=== PATIENT | female | born 1970 | race Caucasian/White ===

== ENCOUNTER → 2021-11-01 10:39 | Outpatient (POV) | payer OTHER, SELFPAY ==
[2021-11-01 11:36] VITALS: BP 114/95; PULSE 80; RESP 20; TEMP 36.7; O2SAT 97; BMI 33.2
--- NOTE | 2021-11-01 13:20 | HMH.PMCON ---
Assessment and Plan (1) Degenerative disc disease, lumbar Status: Acute Category: Medical Code(s): M51.36 - Other intervertebral disc degeneration, lumbar region (2) Lumbar radiculopathy Status: Acute Category: Medical Code(s): M54.16 - Radiculopathy, lumbar region (3) Facet arthropathy, lumbar Status: Acute Category: Medical Code(s): M47.816 - Spondylosis without myelopathy or radiculopathy, lumbar region - Assessment and plan all Dx Assessment and Plan for all problems:: Patient presents today with worsening LBP that radiates to BLE, L > R. Patient had a transforaminal MANE that significantly helped in the past. We will schedule the patient for a repeat left sided transforaminal MANE at L5-S1. Risks and benefits of the procedure have been explained to the patient. Patient would like to proceed with the procedure. Patient is not on any blood thinners. Patient is not needing any refills on her medications. If the patient does not get any relief from this injection, we will consider getting an updated lumbar MRI to further evaluate pathology. Patient has been instructed to contact the clinic with any concerns before the next appointment. Dr. Bernabe has reviewed this note and agrees with this plan of care. This note was dictated using voice recognition software and make contain errors or omissions. HPI - Data of Consult Patient: new to practice Consult date: 11/01/21 Requesting Physician: ZACHARY Saeed - Consult Narrative Reason for consult: LBP History of present illness: Ms. Fajardo is a 50 year old female who presents today as a new patient. Patient is referred by Dr. No. Thank you for the referral. Patient presents today with worsening LBP that radiates to BLE, L > R. She fractured her back in multiple places when she was 17. She had to wear a TLSO brace for several months. Pain is worse with lumbar flexion, extension, and rotation. She had LESI in the past that provided minimal relief. Then, she saw Dr. Mcbride who did a transforaminal epidural steroid injection on L5-S1 that provided months of significant relief. For pain, she has been taking diclofenac and flexeril which are providing some relief. She has done PT and chiropractic adjustment in the past that also provided minimal relief. She has not seen neurosurgery. Lumbar MRI from 2018 shows left posterolateral disc protrusion at L5-S1 with a high-grade left neural foraminal narrowing. CC: ZACHARY Saeed [facility] History I have reviewed the patient's past medical history: Yes Medical History: Reports:: Hypertension Denies:: Diabetes Mellitus Type 2 *Have you ever received a pneumonia vaccine?: No *Have you received a flu vaccine this season?: Yes Fractures: Yes - *Social History Smoking Status: Current every day smoker Alcohol Intake: never *Occupational Status:: employed *Travel in the last 8 weeks: None Family Hx:: No significant family history Review of Systems - Review of Systems Review of Systems: General: No recent weight changes, no fever, no sleep disturbances Respiratory: No cough, no shortness of air, no recurring pulmonary infections Cardiovascular/peripheral vascular: No chest pain, no palpitations, no edema, no shortness of breath Gastrointestinal: No new onset incontinence, normal bowel movements reported Genitourinary: No new onset incontinence Musculoskeletal: Low back pain Psychiatric: [Normal mood/affect] Neurological: [Denies weakness in extremities], [denies balance issues] Meds Home Medications Medication Instructions Recorded Confirmed Type Cyclobenzaprine HCl 5 - 10 mg PO TID PRN 11/01/21 11/01/21 History [Cyclobenzaprine 10mg Tab*] Diclofenac Potassium [Diclofenac 50 mg PO DAILY 11/01/21 11/01/21 History 50mg Tab] Doxycycline Hyclate [Doxycycline 50 mg PO Q12H PRN 11/01/21 11/01/21 History 50mg Capsule] Fluoxetine HCl [Prozac 20mg 20 mg PO DAILY 11/01/21 11/01/21 History Capsule]
== END ==
PROVIDERS: Visit Provider Student in an Organized Health Care Education/Training Program
DX: M51.16 Intervertebral disc disorders with radiculopathy, lumbar region (principal); M47.26 Other spondylosis with radiculopathy, lumbar region
CPT/HCPCS: 99202; G0463

== ENCOUNTER 2021-11-02 07:37 | Day surgery (SDC) | payer OTHER, SELFPAY ==
[2021-11-02 07:46] VITALS: BP 132/78; PULSE 89; RESP 18; TEMP 36.5; O2SAT 96; BMI 33.2
[2021-11-02 08:04] VITALS: BP 146/77; PULSE 81; RESP 20
--- NOTE | 2021-11-02 08:12 | P.PCN_ITS ---
- Procedure Date: 11/02/21 Time: 08:12 Anesthesiologist:: Matthew Robert CRNA Complications:: None Pre-procedure Diagnosis:: Degenerative disc disease lumbar spine. Lumbar spondylosis. Lumbar radiculopathy. Post-procedure Diagnosis:: Same Indications for Procedure:: This patient is a very pleasant 50-year-old female that reports to our injection clinic today for transforaminal epidural steroid injection at the L5-S1 level on the left. Patient is had this pain in the past. She has had this injection in the past. With significant improvement. She rates her pain 7/10. She descr ibes the pain as constant, dull, aching in the low back left side greater than right including the left leg to the foot. Procedure Details:: Details of the procedure were explained to the patient. The patient taken the procedure room placed in the prone position on the fluoroscopy table. The area over the left lower lumbar spine was cleaned using chlorhexidine as a cleansing solution. Using fluoroscopy guidance a marker was placed just lateral to the L5 vertebral body. The skin and subcutaneous tissue was anesthetized using 1% lidocaine and a 25-gauge needle. At this time a 3 inch 22-gauge needle was used to access the left L5-S1 upper one third foramen. This was done with fluoroscopy guidance. Confirming needle placement using lateral view fluoroscopy the needle was confirmed in the upper one third of the L5-S1 foramen. After negative aspiration. At this time 0.5 cc of 1% lidocaine +40 mg of Depo-Medrol was injected. Patient tolerated the procedure without difficulty. There are no complications. Plan and Disposition:: Patient was discharged without incident.
[2021-11-02 08:13] VITALS: BP 124/83; PULSE 81; RESP 18; O2SAT 100
== END 2021-11-02 08:14 | disposition home or self-care (01) ==
LOC: SC.PAINP 07:40
PROVIDERS: PCP Internal Medicine; Visit Provider Nurse Anesthetist, Certified Registered
DX: M51.16 Intervertebral disc disorders with radiculopathy, lumbar region (principal); M47.26 Other spondylosis with radiculopathy, lumbar region
CPT/HCPCS: 64483; J1040

== ENCOUNTER → 2021-11-29 08:20 | Outpatient (POV) | payer OTHER, SELFPAY ==
[2021-11-29 08:51] VITALS: BP 149/98; PULSE 94; RESP 18; TEMP 36.6; O2SAT 99; BMI 32.3
--- NOTE | 2021-11-29 10:46 | HMH.PAINSOAP ---
[facility] Pain Management SOAP Note Subjective:: Patient is a very pleasant 50-year-old female that ports to clinic today for follow-up. We are currently treating the patient for degenerative disc disease of lumbar spine with lumbar radiculopathy symptoms, lumbar spondylosis. She had a transforaminal epidural steroid injection at L5-S1 on her left side on November 02, 2021. She states this injection has worked well for her. She states that the shot continues to be helping she has been able to increase her activity. Today she rates her pain a 3 out of 10. She states her pain is in her low back and her hips, describing it as a dull ache. She also states that she has calf pain that is worse when she lays down. She states that she had older lumbar MRI imaging and would like updated imaging ordered today. Patient takes caxi-rll-[id number] Tylenol and ibuprofen as needed for pain. Her Johny is [id number] with a morphine equivalent of 0. It has been reviewed and is appropriate. Review of Systems: General: No recent weight changes, no fever, no sleep disturbances Respiratory: No cough, no shortness of air, no recurring pulmonary infections Cardiovascular/peripheral vascular: No chest pain, no palpitations, no edema, no shortness of breath Gastrointestinal: No new onset incontinence, normal bowel movements reported Genitourinary: No new onset incontinence Musculoskeletal: Low back pain, bilateral hip pain, bilateral calf pain Psychiatric: [Normal mood/affect] Neurological: [Denies weakness in extremities], [denies balance issues] Objective:: Physical Exam: General: Alert and oriented x3, no acute distress, pleasant and cooperative Lungs: Respirations even and unlabored, symmetrical chest expansion Eyes: PERRL Musculoskeletal: Flexion and extension of bilateral hip, calf and lumbar [spine] somewhat guarded secondary to pain, [antalgic gait noted] Neurological: Speech clear, no gross sensory deficit Assessment:: Degenerative disc disease of lumbar spine with lumbar radiculopathy symptoms, lumbar spondylosis Plan:: Patient states she has had 70% relief in her back since her injection. At time of exam she did have point tenderness on bilateral hips. I have discussed with the patient about possibly having bilateral hip bursa injections. At this time patient is going to wait on those injections. For her calf pain we have decided to start her on restless leg medication, Requip. We will follow-up with her in 2 weeks on this new medication. At today's visit we will also order new lumbar MRI imaging. Patient will return to clinic in 2 weeks for follow-up. Patient has been instructed to contact the clinic with any concerns before the next appointment. Dr. Bernabe has reviewed this note and agrees with this plan of care. This note was dictated using voice recognition software and make contain errors or omissions. [facility] History I have reviewed the patient's past medical history: Yes Medical History: Reports:: Hypertension Denies:: Diabetes Mellitus Type 1, Diabetes Mellitus Type 2, MRSA *Have you ever received a pneumonia vaccine?: No *Have you received a flu vaccine this season?: Yes Other Surgeries: Yes: , Hysterectomy-Total, Thyroidectomy Fractures: Yes - *Social History Smoking Status: Never smoker Alcohol Intake: never *Occupational Status:: other *Travel in the last 8 weeks: Inside the [facility] Family Hx:: No significant family history
== END ==
PROVIDERS: Visit Provider Student in an Organized Health Care Education/Training Program
DX: M51.16 Intervertebral disc disorders with radiculopathy, lumbar region (principal); M47.26 Other spondylosis with radiculopathy, lumbar region
CPT/HCPCS: 99212; G0463

== ENCOUNTER → 2021-12-03 08:11 | Outpatient (CLI) | payer OTHER, SELFPAY ==
--- NOTE | 2021-12-03 08:14 | MR_ITS ---
FINAL REPORT CLINICAL HISTORY: BACK PAIN. RIGHT AND LEFT LEG PAIN, NUMBNESS, AND TINGLING BUT LEFT LEG IS WORSE. BILATERAL HIP PAIN. SYMPTOMS FOR YEARS. HISTORY LUMBAR FRACTURE YEARS AGO. FINDINGS: Multiplanar MR imaging of the lumbar spine was performed without contrast. On the sagittal T2-weighted images, disc degeneration is seen at multiple levels. There are several Schmorl's nodes. The vertebral alignment is normal. There is no evidence of fracture. No bony mass is identified. The conus has an unremarkable appearance. No significant canal stenosis is identified. T11-T12: A left paracentral disc protrusion indents the thecal sac. T12-L1: There is no significant canal stenosis or neural foraminal narrowing. L1-2: There is an annular bulge, facet arthropathy and vertebral osteophytes. There is mild right neural foraminal narrowing. L2-3: There is an annular bulge and facet arthropathy. There is a small left foraminal disc protrusion. There is mild left neural foraminal narrowing. L3-4: There is an annular bulge and facet arthropathy. There is mild bilateral neural foraminal narrowing. L4-5: There is an annular bulge and facet arthropathy. There is moderate bilateral neural foraminal narrowing. L5-S1: There is an annular bulge, facet arthropathy and vertebral osteophytes. There is a small central disc protrusion. There is moderate right and severe left neural foraminal narrowing. IMPRESSION: Disc protrusions at T11-T12, L2-L3, and L5-S1 without significant central canal stenosis. Multilevel degenerative disc disease with areas of neural foraminal narrowing. Reviewed, Interpreted and Dictated by Justin Singer III, MD Transcribed by Hesham Hawkins Authenticated and [facility]
== END ==
PROVIDERS: PCP Internal Medicine; Visit Provider Student in an Organized Health Care Education/Training Program
DX: M54.50 Low back pain, unspecified (principal)
CPT/HCPCS: 72148; 76376

== ENCOUNTER → 2021-12-20 08:29 | Outpatient (POV) | payer OTHER, SELFPAY ==
[2021-12-20 08:43] VITALS: BP 150/94; PULSE 79; RESP 20; O2SAT 99; BMI 33.2
--- NOTE | 2021-12-20 08:57 | HMH.PAINSOAP ---
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 We are currently treating the patient for degenerative disc disease of lumbar spine with lumbar radiculopathy symptoms, lumbar spondylosis. Today she rates her pain a 0 out of 10. We have done injective therapy in the past for her, her last injection was a transforaminal epidural steroid injection at L5-S1 on her left side on November 02, 2021. We also started prescribing her restless leg medication, ropinirole 0.25 mg daily. She states this medication has significantly improved her cramping in her legs/calves. She denies any side effects from this medication. She denies any change to the type or location of pain she experiences. She would like to review her MRI findings at today's visit. Her Johny is [id number] it has been reviewed and appropriate. Review of Systems: General: No recent weight changes, no fever, no sleep disturbances Respiratory: No cough, no shortness of air, no recurring pulmonary infections Cardiovascular/peripheral vascular: No chest pain, no palpitations, no edema, no shortness of breath Gastrointestinal: No new onset incontinence, normal bowel movements reported Genitourinary: No new onset incontinence Musculoskeletal: [Low back pain, bilateral leg/calf pain] Psychiatric: [Normal mood/affect] Neurological: [Denies weakness in extremities], [denies balance issues] Objective:: Physical Exam: General: Alert and oriented x3, no acute distress, pleasant and cooperative Lungs: Respirations even and unlabored, symmetrical chest expansion Eyes: PERRL Musculoskeletal: Flexion and extension of lumbar [spine] somewhat guarded secondary to pain, [antalgic gait noted] Neurological: Speech clear, no gross sensory deficit FINAL REPORT CLINICAL HISTORY: BACK PAIN. RIGHT AND LEFT LEG PAIN, NUMBNESS, AND TINGLING BUT LEFT LEG IS WORSE. BILATERAL HIP PAIN. SYMPTOMS FOR YEARS. HISTORY LUMBAR FRACTURE YEARS AGO. FINDINGS: Multiplanar MR imaging of the lumbar spine was performed without contrast. On the sagittal T2-weighted images, disc degeneration is seen at multiple levels. There are several Schmorl's nodes. The vertebral alignment is normal. There is no evidence of fracture. No bony mass is identified. The conus has an unremarkable appearance. No significant canal stenosis is identified. T11-T12: A left paracentral disc protrusion indents the thecal sac. T12-L1: There is no significant canal stenosis or neural foraminal narrowing. L1-2: There is an annular bulge, facet arthropathy and vertebral osteophytes. There is mild right neural foraminal narrowing. L2-3: There is an annular bulge and facet arthropathy. There is a small left foraminal disc protrusion. There is mild left neural foraminal narrowing. L3-4: There is an annular bulge and facet arthropathy. There is mild bilateral neural foraminal narrowing. L4-5: There is an annular bulge and facet arthropathy. There is moderate bilateral neural foraminal narrowing. L5-S1: There is an annular bulge, facet arthropathy and vertebral osteophytes. There is a small central disc protrusion. There is moderate right and severe left neural foraminal narrowing. IMPRESSION: Disc protrusions at T11-T12, L2-L3, and L5-S1 without significant central canal stenosis. Multilevel degenerative disc disease with areas of neural foraminal narrowing. Reviewed, Interpreted and Dictated by Justin Singer III, MD Transcribed by Hesham Hawkins Authenticated and [facility] Assessment:: Degenerative disc disease of lumbar spine with lumbar radiculopathy symptoms, lumbar spondylosis Plan:: She has had significant improvement since starting her ropinirole 0.25 mg daily for restless leg syndrome. Patient still currently has a prescription of this medication to ed
== END ==
PROVIDERS: PCP Internal Medicine; Visit Provider Nurse Practitioner Family
DX: M51.16 Intervertebral disc disorders with radiculopathy, lumbar region (principal); M47.26 Other spondylosis with radiculopathy, lumbar region
CPT/HCPCS: 99212; G0463

== ENCOUNTER → 2022-01-17 08:29 | Outpatient (POV) | payer OTHER, SELFPAY ==
[2022-01-17 08:36] VITALS: BP 137/95; PULSE 82; RESP 18; O2SAT 98; BMI 33.0
--- NOTE | 2022-01-17 08:56 | EXP.PAIN.SOA ---
[facility] Pain Management SOAP Note Subjective:: Patient is a pleasant 51-year-old female who presents today for follow-up and medication refill. We are currently treating the patient for degenerative disc disease of lumbar spine with lumbar radiculopathy symptoms, lumbar spondylosis, restless leg syndrome. Today she rates her pain a 8 out of 10 and states her pain is primarily on her low back on the left side that radiates into her left hip and groin. She states it occasionally does go down to her knee. She states this is a throbbing, achy sensation that is worse with increased activity. Raising her leg to put her shoes on is painful. Patient denies any new trauma or injury to the site. We have done injective therapy in the past that provided significant improvement of her symptoms. She is currently on ropinirole 0.25 mg daily for her restless leg syndrome. Patient states this medication has significantly improved her cramping in her legs and calves. She is requesting a refill at today's visit. She denies any side effects from this medication. Her Johny is [id number]. It has been reviewed and appropriate. Review of Systems: General: No recent weight changes, no fever, no sleep disturbances Respiratory: No cough, no shortness of air, no recurring pulmonary infections Cardiovascular/peripheral vascular: No chest pain, no palpitations, no edema, no shortness of breath Gastrointestinal: No new onset incontinence, normal bowel movements reported Genitourinary: No new onset incontinence Musculoskeletal: Low back pain, left hip pain, left groin pain Psychiatric: [Normal mood/affect] Neurological: [Denies weakness in extremities], [denies balance issues] Objective:: Physical Exam: General: Alert and oriented x3, no acute distress, pleasant and cooperative Lungs: Respirations even and unlabored, symmetrical chest expansion Eyes: PERRL Musculoskeletal: Flexion and extension of lumbar [spine] somewhat guarded secondary to pain, [antalgic gait noted] Neurological: Speech clear, no gross sensory deficit Assessment:: Degenerative disc disease of lumbar spine with lumbar radiculopathy symptoms, lumbar spondylosis, restless leg syndrome, left-sided sacroiliitis Plan:: Patient is having significant pain along her left low back that radiates into her left hip and groin with occasional pain into her thigh. Patient had extreme point tenderness at her left SI and a positive left Maicol's, Kaylie's, Gaenslen's, compression and distraction test during today's exam. I have discussed with the patient regarding a left SI injection. Risk and benefits were discussed with the patient. She would like to proceed forward with this injection. I will also refill the patient's ropinirole 0.25 mg daily and provide a 3 month supply. Patient will be scheduled for a left SI injection at today's visit. Patient has been instructed to contact the clinic with any concerns before the next appointment. Dr. Bernabe has reviewed this note and agrees with this plan of care. This note was dictated using voice recognition software and make contain errors or omissions. PFSH PFSH Social History Smoking Status: Never smoker alcohol intake: never current occupational status: employed caffeine: Yes
== END | disposition home or self-care (01) ==
PROVIDERS: PCP Internal Medicine; Visit Provider Nurse Practitioner Family
DX: M51.16 Intervertebral disc disorders with radiculopathy, lumbar region (principal); M47.26 Other spondylosis with radiculopathy, lumbar region; M46.1 Sacroiliitis, not elsewhere classified; G25.81 Restless legs syndrome
CPT/HCPCS: 99212; G0463

== ENCOUNTER 2022-02-05 08:00 | Day surgery (SDC) | payer OTHER, SELFPAY ==
[2022-02-05 08:17] VITALS: BP 149/90; PULSE 95; RESP 18; TEMP 36.7; O2SAT 95; BMI 33.2
[2022-02-05 09:05] VITALS: BP 144/96; PULSE 84; RESP 18; O2SAT 100
[2022-02-05 09:06] VITALS: BP 144/96; PULSE 83; RESP 18; O2SAT 100
[2022-02-05 09:10] VITALS: BP 139/90; PULSE 76; RESP 18; O2SAT 100
--- NOTE | 2022-02-05 09:16 | EXP.PAIN.PRO ---
Procedure Date: 02/05/22 Time: 09:05 Anesthesiologist:: Matthew Robert CRNA Complications:: None Pre-procedure Diagnosis:: Degenerative disc disease of lumbar spine with lumbar radiculopathy symptoms, lumbar spondylosis, restless leg syndrome, sacroiliitis Post-procedure Diagnosis:: Same Indications for Procedure:: Patient is a pleasant 51-year-old female who presents today for left SI injection. We are currently treating the patient for degenerative disc disease of lumbar spine with lumbar radiculopathy symptoms, lumbar spondylosis, restless leg syndrome, sacroiliitis. Today the patient states she is still having issues on her left side low back that radiates into her left extremity. She describes this as a throbbing, achy sensation that is worse with increased activity. Procedure Details:: Informed consent was obtained and the risk and benefits of the procedure were explained to the patient. The patient was taken to the procedure room where noninvasive monitors were placed including a noninvasive blood pressure cuff and pulse oximeter. The patient was placed on prone on the procedure table. The lower back/buttocks was cleansed using chlorhexidine as a cleansing solution. The C arm fluoroscopy was used to view the left SI joint. The skin and subcutaneous tissue were accessed using a 22-gauge needle under fluoroscopic guidance into the inferior aspect of the left SI joint approximately 5 mL of bupivacaine 0.25% and Depo-Medrol 40 mg were incrementally injected into the left SI joint. Patient tolerated the procedure well with no complications. Plan and Disposition:: Patient was observed in the pain clinic for period of time and then discharged home neurologically intact. Patient has been instructed to contact the clinic with any concerns before the next appointment. Dr. Bernabe is reviewed this note and agrees with this plan of care. This note was dictated using voice recognition software and may contain errors or omissions.
== END 2022-02-05 09:10 | disposition home or self-care (01) ==
PROVIDERS: PCP Internal Medicine; Visit Provider Nurse Anesthetist, Certified Registered
DX: M51.16 Intervertebral disc disorders with radiculopathy, lumbar region (principal); M47.26 Other spondylosis with radiculopathy, lumbar region; M46.1 Sacroiliitis, not elsewhere classified; G25.81 Restless legs syndrome
CPT/HCPCS: 27096; G0260; J1040

== ENCOUNTER → 2022-03-19 09:38 | Outpatient (POV) | payer OTHER, SELFPAY | PROVIDERS: Visit Provider Dermatology | DX: Z00.00 Encounter for general adult medical examination without abnormal findings (principal) ==

== ENCOUNTER → 2022-03-28 08:28 | Outpatient (CLI) | payer OTHER, SELFPAY ==
--- NOTE | 2022-03-28 08:37 | XR_ITS ---
FINAL REPORT CLINICAL HISTORY: BILAT HIP PAIN FINDINGS: 2 views of the left hip and an AP pelvis were obtained. There is no acute fracture or dislocation. The joint spaces are intact. There are no soft tissue abnormalities. IMPRESSION: No acute process. Reviewed, Interpreted and Dictated by Mahamed Warren MD Transcribed by Hesham Hawkins Authenticated and [facility]
--- NOTE | 2022-03-28 08:38 | XR_ITS ---
FINAL REPORT CLINICAL HISTORY: BILAT HIP PAIN FINDINGS: 2 views of the right hip were obtained. There is no acute fracture or dislocation. The joint spaces are intact. There are no soft tissue abnormalities. IMPRESSION: No acute process. Reviewed, Interpreted and Dictated by Mahamed Warren MD Transcribed by Hesham Hawkins Authenticated and [facility]
== END ==
PROVIDERS: PCP Nurse Practitioner Family; Visit Provider Nurse Practitioner Family
DX: M25.552 Pain in left hip (principal); M25.551 Pain in right hip
CPT/HCPCS: 73502

== ENCOUNTER 2024-10-04 10:46 | Outpatient (POV) | payer BC, SELFPAY ==
--- NOTE | 2024-10-04 11:04 | A.OFFVIS_ITS ---
[facility] Disclaimer: The information contained in this section may have been updated after the patient was seen, as this information can be updated by other users. Medical History (Updated 02/05/22 @ 08:23 by Elodia Clancy RN) No significant past medical history Surgical History (Updated 02/05/22 @ 08:24 by Elodia Clancy RN) History of hysterectomy Hx of breast reduction, elective History of thyroidectomy History of Family History (Updated 02/05/22 @ 08:23 by Elodia Clancy RN) Other No significant family history Social History Smoking Status: Never smoker alcohol intake: never current occupational status: employed Travel in the last 8 weeks?: Inside the [place] caffeine: Yes Have you lived/traveled outside US in past 30 days?: No Contact w/someone who lives/traveled outside US past 30 days?: No Exposure to someone with infectious disease in past 14 days?: No Do you have a fever (greater than 100.4 F or 38 C)?: No Have you tested positive for COVID-19?: No Exposed to someone with COVID-19 in past 14 days?: No Do you have a sore throat?: No Do you have a cough?: No Do you have any weakness?: No Do you have any diarrhea?: No Are you experiencing any unusual bleeding?: No Do you have any muscle aches/pain?: No Do you have any abdominal pain?: No Are you experiencing loss of taste or smell?: No PM Subjective & Objective Subjective Subjective:: Patient is a pleasant 53-year-old female who presents today for worsening low back pain. Today she rates her pain a 8 out of 10. Patient states that she has still been having chronic back pain that we saw her previously in 2021 for. Patient states that it is just gotten more and more unmanageable and the pain is fairly constant. She describes her low back pain as an aching, throbbing sensation with numbness and tingling that does radiate down the entire left extremity to her foot as well as the right leg but stops around her hip. Patient does state from our last visit she did see a provider in [place] and that they did do an epidural last year that did help however has officially worn off. Patient is interested in anything we may be able to provide as she is having severe pain that is interfering with her ability perform activities of daily living such as cooking and cleaning. Patient was previously taking diclofenac 50 mg however did not really feel like this was working as well and is discontinued this. Patient does state that she was tried on gabapentin how ever it caused significant brain fog and she discontinued it. Her Johny has been reviewed and is appropriate. Review of Systems: General: No recent weight changes, no fever, no sleep disturbances Respiratory: No cough, no shortness of air, no recurring pulmonary infections Cardiovascular/peripheral vascular: No chest pain, no palpitations, no edema, no shortness of breath Gastrointestinal: No new onset incontinence, normal bowel movements reported Genitourinary: No new onset incontinence Musculoskeletal: Low back pain, bilateral leg pain Psychiatric: [Normal mood/affect] Neurological: [Denies weakness in extremities], [denies balance issues] Pain at rest (0-10 scale): 8 Objective Objective:: Physical Exam: General: Alert and oriented x3, no acute distress, pleasant and cooperative Lungs: Respirations even and unlabored, symmetrical chest expansion Eyes: PERRL Musculoskeletal: Flexion and extension of lumbar [spine] somewhat guarded secondary to pain, [antalgic gait noted] positive leg raise Neurological: Speech clear, no gross sensory deficit FINDINGS: Multiplanar MR imaging of the lumbar spine was performed without contrast. On the sagittal T2-weighted images, disc degeneration is seen at multiple levels. There are several Schmorl's nodes. The vertebral alignment is normal. There is no evidence of fracture. No bony mass is identified. The conus has an unremarkable appearance. No significant canal stenosis is identified. T11-T12: A left paracentral disc protrusion indents the thecal sac. T12-L1: There is no significant canal stenosis or neural foraminal narrowing. L1-2: There is an annular bulge, facet arthropathy and vertebral osteophytes. There is mild right neural foraminal narrowing. L2-3: There is an annular bulge and facet arthropathy. There is a small left foraminal disc protrusion. There is mild left neural foraminal narrowing. L3-4: There is an annular bulge and facet arthropathy. There is mild bilateral neural foraminal narrowing. L4-5: There is an annular bulge and facet arthropathy. There is moderate bilateral neural foraminal narrowing. L5-S1: There is an annular bulge, facet arthropathy and vertebral osteophytes. There is a small central disc protrusion. There is moderate right and severe left neural foraminal narrowing. IMPRESSION: Disc protrusions at T11-T12, L2-L3, and L5-S1 without significant central canal stenosis. Multilevel degenerative disc disease with areas of neural foraminal narrowing. Reviewed, Interpreted and Dictated by Justin Singer III, MD Transcribed by Hesham Hawkins Authenticated and [facility] Has patient had previous pain injection?: No Conservative treatment options previously tried: NSAIDS Length of treatment: Longer than 12 weeks and Home exercise plan Length of treatment: Longer than 12 weeks Meds Home Medications and Allergies Home Medications ?Medication ?Instructions ?Recorded ?Confirmed ?Type cyclobenzaprine 10 mg tablet 5 - 10 mg PO TID PRN PAIN 11/01/21 02/05/22 History diclofenac potassium 50 mg tablet 50 mg PO DAILY . 11/01/21 02/05/22 History doxycycline hyclate 50 mg capsule 50 mg PO Q12H PRN ACNE 11/01/21 02/05/22 History fluoxetine 20 mg capsule 20 mg PO DAILY Depression 11/01/21 02/05/22 History hydrochlorothiazide 12.5 mg capsule 25 mg PO DAILY HTN 11/01/21 02/05/22 History levocetirizine 5 mg tablet 5 mg PO DAILY Allergy symptoms 11/01/21 02/05/22 History linaclotide 145 mcg capsule 145 mcg PO DAILY PRN Constipation 11/01/21 02/05/22 History pantoprazole 40 mg tablet,delayed 40 mg PO DAILY GERD 11/01/21 02/05/22 History release trazodone 50 mg tablet 100 mg PO DAILY SLEEP 11/01/21 02/05/22 History ubrogepant 100 mg tablet 100 mg PO DAILY MIGRAINE 11/01/21 02/05/22 History ropinirole 0.25 mg tablet 0.25 mg PO HS #30 tabs 06/09/23 Rx ropinirole 0.25 mg tablet See Rx Instructions .Route 01/26/24 Rx .COMPLEX #90 tabs New Prescriptions to Start Prescriptions: Assessment and Plan *Assessment and plan (1) Lumbar radiculopathy: Status: Acute Category: Medical Code(s): M54.16 - Radiculopathy, lumbar region (2) Degenerative disc disease, lumbar: Status: Acute Category: Medical Code(s): M51.369 - Other intervertebral disc degeneration, lumbar region without mention of lumbar back pain or lower extremity pain Plan Patient is experiencing worsening pain in her low back with numbness and tingling into her lower extremities. Patient did have limited range of motion of her lumbar spine with a positive leg raise. I did discuss with patient that I do believe they would benefit from a lumbar epidural steroid injection. Patient does describe the pain radiating down the left leg on the lateral upper thigh that does go to the front of her lower calf that is appropriate for the L4-L5 dermatome. Risk and benefits were discussed with patient and the patient would like to proceed forward with this plan of care. Patient is not on any blood thinner. Patient has tried and failed conservative therapy including oral medications, heat and ice, topicals, previous physical therapy and continued at home stretching exercise for longer than 12 weeks that was physician guided. Patient has not had any lumbar epidurals from our office to compare to. Patient is very limited on her work schedule and is only off on however we do not have her provider that can do the injection here at this location. We will send her to our [facility] location for Dr. Bernabe to do the epidural. Saima nealdawson will also be sent in prescription refills on diclofenac but increase to 75 mg twice a day. She was counseled to discontinue all other NSAIDs while taking this medication and take it with food to minimize GI upset. I will also send in a 2-week dose of methocarbamol 500 mg 3 times daily as needed and increase the concentration on her compounded cream. Patient will return to our office after her epidural injection there in [place]. Patient did have significant findings even in 2021 with her last imaging report we had. We did discuss the possibility of ordering updated imaging however the patient does state that she already knows she has significant findings with stenosis and feels like this is still progression of the same pain she had previously. We will schedule the patient for an LESI L4-L5 under fluoroscopy. Patient has been instructed to contact the clinic with any concerns before the next appointment. Dr. Bernabe has reviewed this note and agrees with this plan of care. This note was dictated using voice recognition software and make contain errors or omissions. All injections are used with Lidocaine, Bupivacaine and Depo Medrol. Occasionally urine drug screen is needed to verify patient's compliance with our office pain contract. This is ordered based off specific treatments related to chronic pain with the potential to abuse certain medications.
[2024-10-04 11:50] VITALS: BP 149/96; PULSE 103; RESP 18; O2SAT 94; BMI 36.3
== END 2024-10-04 23:59 | disposition home or self-care (01) ==
PROVIDERS: PCP Nurse Practitioner Family; Visit Provider Nurse Practitioner Family
DX: M51.16 Intervertebral disc disorders with radiculopathy, lumbar region (principal); Z73.89 Other problems related to life management difficulty
CPT/HCPCS: 99212; G0463

== ENCOUNTER 2024-12-09 15:23 | Outpatient (POV) | payer BC, SELFPAY ==
--- OUTSIDE RECORDS SUMMARY | 2024-12-09 15:27 | XMS_ITS | Continuity of Care Document ---
Author Organization [place] [facility] New Address [address] [place] [address] Assessment Encounter Date Assessment Date Assessment LastModified by Organization Details LastModified Time 10/28/2024 10/28/2024 This patient had lumbar epidural steroid injection under fluoroscopy today. She usually gets 6 months relief from these injections she is 80% better from these injections. She will follow-up in our [place] office. Will evaluate efficacy of this injection. Will reevaluate symptoms at that time. abux Not available 10/28/2024 10:32:29 Plan of Treatment Reminders Order Date Submit Date Provider Last Modified By Organization Details Last Modified Time Details Appointments None record ed. Lab None record ed. Referral None record ed. Procedures None record ed. Surgeries None record ed. Imaging None record ed. Medication Orders None record ed. Patient TargetsNo targets recorded. Patient Instructions Encounter Date Encounter Id Patient Instructions Last Modified By Organization Details Last Modified Time 10/28/2024 [id number] back pain: care instructions abux Not available 10/28/2024 10:32:52 learning about relief for back pain abux Not available 10/28/2024 10:32:52 Reason for Referral None Reported. Procedures Surgical History Date Name Laterality Status Provider Name and Address Organization Details Recorded Time 10/29/19 25 Lumbar MANE: Interlaminar completed JULIETA MERAZ [place] [facility] 10/28/2024 09:15:02 hysterectomy completed JULIETA MERAZ [place] [facility] 10/19/2024 08:08:19 thyroidectomy completed JULIETA MERAZ [place] [facility] 10/19/2024 08:08:28 section completed JULIETA MERAZ [place] [facility] 10/19/2024 08:08:35 reduction mammoplasty completed JULIETA MERAZ [place] [facility] 10/19/2024 08:08:52 Imaging Results None recorded. Procedure Notes None recorded. Medical Equipment None Reported. Allergies Allergen ID Allergen Name Allergen Category Reaction Reaction Severity Criticality Documentation Date Start Date Code Code System Note Provider Name and Address Organization Details Recorded Time 7265 sulfaceta mide medicatio n Not available Not available Not available 10/19/2024 97586 RxNorm JULIETA MERAZ null, [place] [facility] 07:57:27 7266 Bactrim medicatio n Not available Not available Not available 10/19/2024 69673 9 RxNorm JULIETA MERAZ null, [place] [facility] 07:59:13 Medications Name Sig Start Date Stop Date Status Note LastModified by Organization Details LastModified Time quetiapine 25 mg tablet TAKE 1 TABLET BY MOUTH EVERYDAY AT BEDTIME active Not Available Not Available No t Available cyclobenzapr ine 10 mg tablet Take 1 tablet 3 times a day by oral route. active Not Available Not Available No t Available methocarbamo l 500 mg tablet Take 2 tablets 3 times a day by oral route. active Not Available Not Available No t Available trazodone 50 mg tablet Take 1 tablet twice a day by oral route. active Not Available Not Available No t Available minocycline 100 mg capsule TAKE 1 CAPSULE BY MOUTH TWICE A DAY active Not Available Not Available No t Available tramadol 50 mg tablet TAKE 1 TABLET BY MOUTH EVERY 8 HOURS active Not Available Not Available No t Available triamcinolon e acetonide 0.1 % topical cream APPLY TO THE AFFECTED AREA(S) TWICE DAILY active Not Available Not Available Not Available ropinirole 0.25 mg tablet Take 1 tablet 3 times a day by oral route. active Not Available Not Available No t Available pantoprazole 40 mg tablet,delay ed release Take 1 tablet every day by oral route. active Not Available Not Available No t Available lisinopril 10 mg tablet Take 1 tablet every day by oral route. active Not Available Not Available No t Available promethazine 25 mg tablet TAKE 1 TABLET BY MOUTH EVERY 6 HOURS FOR 5 DAYS. active Not Available Not Available No t Available diclofenac sodium 75 mg tablet,delay ed release Take 1 tablet twice a day by oral route. active Not Available Not Available No t Available hydroxyzine HCl 25 mg tablet TAKE 1 TABLET BY MOUTH THREE TIMES A DAY NEEDED FOR ITCHING active Not Available Not Available Not Available epinephrine 0.3 mg/0.3 mL injection, auto-injecto r ADMINISTER INJECTION NEEDED FOR ANAPHYLAXIS DIRECTED ON PACKAGING active Not Available Not Available No t Available prednisone 5 mg tablets in a dose pack TAKE 6 TABLETS ON DAY 1 DIRECTED ON PACKAGE AND DECREASE BY 1 TAB EACH DAY FOR A TOTAL OF 6 DAYS active Not Available Not Available No t Available metformin ER 500 mg tablet,exten ded release 24 hr TAKE 1 TABLET BY MOUTH EVERY DAY AT DINNER active Not Available Not Available No t Available duloxetine 30 mg capsule,chema yed release TAKE 1 CAPSULE BY MOUTH EVERY DAY active Not Available Not Available No t Available duloxetine 60 mg capsule,chema yed release Take 1 capsule every day by oral route. active Not Available Not Available No t Available hydrochlorot hiazide 12.5 mg tablet Take 1 tablet every day by oral route. active Not Available Not Available No t Available levocetirizi ne 5 mg tablet Take 1 tablet every day by oral route. active Not Available Not Available No t Available Linzess 145 mcg capsule Take 1 capsule every day by oral route. active Not Available Not Available No t Available Ubrelvy 100 mg tablet Take by oral route. active Not Available Not Available Not Available Vitals Date Recorded Body height Heart rate Body mass index (BMI) Body weight Oxygen saturation Oxygen saturation in Arterial blood by Pulse oximetry Systolic And Diastolic Provider Name and Address Organization Details Last Updated DateTime 5 165.1 cm 82 /min 41.6 kg/m2 306504. 09 g 100 % 100 % 136/88 mm[Hg] JULIETA MERAZ [place] [facility] 5 09:13:49 Date Recorded Pain severity - 0-10 verbal numeric rating [Score] - Reported Provider Name and Address Organization Details Last Updated DateTime 10/28/202424 August [facility] [place] [facility] 10/28/2024 09:20:53 Social History Question Answer Notes LastModified by Organizat ion Details LastModified Time Tobacco Smoking Status Never Smoker JULIETA cantu [place] [facility] 10/19/2024 08:09:02 In The 14 Days Before Symptom Onset, Have You Had Close Contact With A Laboratory-confirm ed COVID-19 While That Case Was Ill? No [email or web address] Information n ot available 10/19/2024 In The 14 Days Before Symptom Onset, Have You Had Close Contact With A Person Who Is Under Investigation For COVID-19 While That Person Was Ill? No [email or web address] Information not available 10/19/2024 Have You Been To An Area Known To Be High Risk For COVID-19? No Information not available 10/19/2024 Sex: Female Functional Status Question Answer Note LastModified by Organizat ion Details LastModified Time Do you use any illicit or recreational drugs? No [email or web address] Information not available 10/19/2024 Do you or have you ever used any other forms of tobacco or nicotine? No [email or web address] Information not available 10/19/2024 What is your level of alcohol consumption? None [email or web address] Information not available 10/19/2024 Mental Status None recorded. Family History Nothing Reported. Medical History Condition Response Coronary Artery Disease N Gout N Head Trauma/Injury N Depression Y COPD N Anxiety Disorder N Arthritis Y Acid Reflux (GERD) Y Cancer N Stroke N Headaches Y Fibromyalgia N Kidney Disease N Ulcers N Bleeding Disorder N Tuberculosis N AIDS/HIV N Asthma N Substance Abuse N Hepatitis N Hernia N Back Injury N High Cholesterol N Liver Disease N Thyroid Problems Y Anemia N Heart Attack ([place]) N Diabetes N Heart Disease N Hypertension Y Osteoporosis N Gynecological HistoryNo gynecological history recorded. Obstetrics History GPAL:G 0 P 0 0 0 0 Past Encounters Encounter ID Performer Location Encounter Start Date Encounter Closed Date Diagnosis/Indication Diagnosis SNOMED-CT Code Diagnosis ICD10 Code Diagnosis Note [id number] Paul Bernabe MD [address] [place] [id number] 10/28/2024 09:11:56 10/28/2024 09:47:37 Degeneration of lumbar intervertebral disc 20765782 M51.362 Lumbar radiculopathy 128 762047 M54.16 Lumbar spondylosis 49663 0009 M47.816 Health Concerns Section Related Observation LastModified by Organization Detai ls LastModified Time None Recorded Concern Status LastModified by Organization Details LastModified Time None Recorded Payers Encounter Date Sequence Insurance Name Policy Number Policy Faulkner Covered Member ID Faulkner Member ID Guarantor Name 10/28/2024 1 [place] [id number] [address] [place] [id number] Tiny Fajardo Notes Date Note Type Note Provider Name and Address Organization Details Recorded Time 10/28/2024 text/html Back PainReporte d by PatientHPIFor location, patient reportspain radiating to the legsandpain radiating to the footbut reportslumbar. For quality, patient reportssharp,tingling, aching,throbbing, andconstant. For severity, patient reportspain level 8/10. For associated symptoms, patient reportsweak limbs,numbness of the legs/feet, andtinglingbut reportsno fever,no incontinence,no shortness of breath,no unintentional weight loss,no chills,no night sweats,no gait instability,no bowel/bladder symptoms, andno recent increase in stress. For duration, patient reportschronic. For onset/timing, patient reportsrecurrent episode. For context, patient reportsatraumatic,over use, andunusual activity. For alleviating factors, patient reportsrest. For aggravating factors, patient reportsmovement/positi oning,twisting,flexing back,extending back,lifting,housework ,walking,standing, andsitting. For previous injury, patient reportsno prior injury to back. For prior imaging, patient reportsmri. Paul Bernabe MD [address], [address], [place] [facility] 10/28/2024 10:34:03 OBGyn Episode No OBEpisode recorded.
--- OUTSIDE RECORDS SUMMARY | 2024-12-09 15:27 | XMS_ITS | Data Portability ---
Author Organization [place] [facility] Address [address] [place] [address] Assessment Encounter Date Assessment Date Assessment LastModified by Organization Details LastModified Time 10/28/2024 10/28/2024 This patient had lumbar epidural steroid injection under fluoroscopy today. She usually gets 6 months relief from these injections she is 80% better from these injections. She will follow-up in our [place] office. Will evaluate efficacy of this injection. [...] By Organization Details Last Modified Time 10/28/2024 [id number] back pain: care instructions abux Not available [...] [facility] 10/19/2024 08:08:28 section completed JUILETA MERAZ [place] [facility] 10/19/2024 [...] Not available Not available Not available 10/19/2024 89123 RxNorm JULIETA MERAZ null, [place] [facility] 5 07:57:27 7266 Bactrim medicatio n Not available Not available Not available 10/19/2024 [id number] 9 RxNorm JULIETA MERAZ null, [place] [facility] 5 07:59:13 Medications Name Sig Start Date Stop [...] 5 165.1 cm 82 /min 41.6 kg/m2 879428. 09 g 100 % 100 % 136/88 mm[Hg] J[facility] - [facility] 5 09:13:49 Date Recorded Pain severity - 0-10 verbal numeric rating [Score] - Reported Provider Name and Address Organization Details Last Updated DateTime 10/28/202424 August Epi [place] [facility] 10/28/2024 09:20:53 Social History Question Answer Notes LastModified by Organizat ion Details LastModified Time Tobacco Smoking Status Never Smoker JULIETA cantu [place] [facility] 10/19/2024 08:09:02 In The 14 Days Before Symptom Onset, Have You Had Close Contact With A Laboratory-confirm ed COVID-19 While That Case Was Ill? No Information n ot available 10/19/2024 In The 14 Days Before Symptom Onset, Have You Had Close Contact With A Person Who Is Under Investigation For COVID-19 While That Person Was Ill? No [email or web address] Information not available 10/19/2024 Have You Been To An Area Known To Be High Risk For COVID-19? No [email or web address] Information not available 10/19/2024 Sex: Female Functional Status Question Answer Note LastModified by Organizat ion Details LastModified Time Do you use any illicit or recreational drugs? No [email or web address] Information not available 10/19/2024 Do you or have you ever used any other forms of tobacco or nicotine? No [email or web address] Information not available 10/19/2024 What is your level of alcohol consumption? None [email or web address] Information not available 10/19/2024 Mental Status None recorded. Family History Nothing Reported. Medical History Condition Response Coronary Artery Disease N Gout N Hernia N Head Trauma/Injury N Thyroid Problems Y Depression Y COPD N Anemia N Heart Attack ([place]) N Ulcers N Diabetes N Anxiety Disorder N Bleeding Disorder N Arthritis Y Tuberculosis N AIDS/HIV N Acid Reflux (GERD) Y Cancer N Stroke N Asthma N Substance Abuse N Back Injury N High Cholesterol N Hepatitis N Liver Disease N Heart Disease N Headaches Y Fibromyalgia N Hypertension Y Osteoporosis N Kidney Disease N Gynecological HistoryNo gynecological history recorded. Obstetrics History GPAL:G 0 P 0 0 0 0 Past Encounters Encounter ID Performer Location Encounter Start Date Encounter Closed Date Diagnosis/Indication Diagnosis SNOMED-CT Code Diagnosis ICD10 Code Diagnosis Note [id number] Paul Bernabe MD [address] [place] [phone] 10/28/2024 09:11:56 10/28/2024 09:47:37 Degeneration of lumbar intervertebral disc 74376052 M51.362 Lumbar radiculopathy 128 993763 M54.16 Lumbar spondylosis 60061 0009 M47.816 Health Concerns Section Related Observation LastModified by Organization Detai ls LastModified Time None Recorded Concern Status LastModified by Organization Details LastModified Time None Recorded Advance Directives Directive None Recorded Payers Insurance Date Sequence Insurance Name Policy Number Policy Faulkner Covered Member ID Faulkner Member ID Guarantor Name 11/14/2021 1 *SELF PAY* barak Fajardo 10/19/2024 1 [employer] [id number] Tiny Fajardo [id number] Tiny Fajardo 10/25/2024 1 [place] [id number] Tiny Fajardo [id number] Tiny Fajardo Notes Date Note Type [...] patient reportsmri. Paul Bernabe MD [address], [address], [place] [facility] 10/28/2024 10:34:03 OBGyn Episode No OBEpisode recorded.
--- OUTSIDE RECORDS SUMMARY | 2024-12-09 15:27 | XMS_ITS | Clinical Summary ---
Author Organization [facility] Address [address] [id number] Care Team Providers Care Lunch Truck Driver Name Role Phone John Bone MD Primary Care Provider [phone] Social History Tobacco Use Types Packs/Day Years Used Date Smoking Tobacco: Never Assessed Abuse Screen Answer Date Recorded Unsafe at Home or Work/School Not on file Feels Threatened by Someone? Not on file 01/2023 Does Anyone Keep You from Co ntacting Others or Doint Things Outside the Home? Not on file 02/24/2023 Physical Sign of Abuse Present Not on file 1 Housing Stability Answer Date Recorded Current Living Arrangements Not on file 01/2023 Potentially Unsafe Housing Conditions Not on enrico e 02/24/2023 Family and Community Support Answer Jens e Recorded Help with Day-to-Day Activities Not on file 02/24/2023 Lonely or Isolated Not on file 02/24/2023 Employment Answer Date Recorded Do you want help finding or keeping work or a larry b? Not on file 02/24/2023 Disabilities Answer Date Recorded Concentrating, Remembering, or Making Decisions Difficulty Not on file 02/24/2023 Doing Errands Independently Difficulty Not on fi le 02/24/2023 Education Answer Date Recorded Help with school or training? Not on file Preferred Language Not on file 02/24/2023 Comments Unknown Sex and Gender Information Value Date Recorded Sex Assigned at Not on file Legal Sex Female 11:30 AM EDT Gender Identity Not on file Sexual Orientation Not on file Plan of Treatment Upcoming Encounters Date Type Department Care Team (Late st Contact Info) Description 01/03/2025 3:00 PM EDT Office Visit [facility] [address] [place] [id number] Bhupinder Camara DO [address] [place] [address] Health Maintenance Due Date Last Done Comments Annual Gynecologic Pelvic an d Breast Exam 1970 MAMMOGRAM 2010 COLOGUARD 12/02/2015 COLON CANCER SCREENING 5 YEA R SIGMOIDOSCOPY 12/02/2015 CT COLONOGRAPHY 12/02/2015 FECAL OCCULT BLOOD TEST 12/02/2015 FIT Testing (1 year) 12/02/2015 ANNUAL PHYSICAL 12/29/2017 HEPATITIS C SCREENING 12/29/2017 Pneumococcal Vaccine 50+ (1 of 1 - PCV) 2020 ZOSTER VACCINE (2 of 2) 01/23/2022 11/28/2021 COVID-19 Vaccine (5 - 2023-2 5 season) 2024 11/28/2021, 01/18/2021, 06/07/2020, Additional history exists INFLUENZA VACCINE 02/16/2025 02/12/2017 TDAP/TD VACCINES (2 - Td or Tdap) 05/05/2029 019 COLONOSCOPY 05/21/2029 05/21/2019 COLORECTAL CANCER SCREENING 05/21/2029 Insurance PPO Care Teams Lunch Truck Driver Relationship Specialty Start Date End Date John Bone MD PCP - General Pediatrics 11/26/17
--- OUTSIDE RECORDS SUMMARY | 2024-12-09 15:27 | XMS_ITS | Clinical Summary ---
Author Organization Healthcare Address [address] [place] [address] Care Team Providers Care Nursing Clerk Name Role Phone John Bone MD Primary Care Provider [phone] Allergies Active Allergy Reactions Criticality Noted Date Comments Sulfacetamide Hives Medium 04/06/2007 Medications traZODone (Desyrel) 50 MG tablet Take 100 mg by mouth 1 (one) time each day. 2 Active Ubrelvy 100 MG tablet TAKE 1 TABLET BY MOUTH ONCE NEEDED MAY TAKE SECOND DOSE AT LEAST 2 HOURS AFTER 2 Active promethazine (Phenergan) 25 MG tablet TAKE 1 TABLET BY MOUTH EVERY 6 HOURS NEEDED FOR 5 DAYS 2 Active tretinoin (Retin-A) 0.05 % cream APPLY TOPICALLY TO THE AFFECTED AREA ON THE FACE EVERY DAY 1 Active pantoprazole (Protonix) 40 MG EC tablet Take 40 mg by mouth 1 (one) time each day. 2 Active Linzess 145 MCG tablet Take by mouth 1 (one) time each day. 2 Active doxycycline (Vibramycin) 50 MG capsule TAKE 1 CAPSULE BY MOUTH EVERY 12 HOURS 1 Active diclofenac (Voltaren) 50 MG EC tablet TAKE 1 TABLET BY MOUTH THREE TIMES DAILY WITH FOOD OR MILK 2 Active cyclobenzaprine (Flexeril) 10 MG tablet Take 5-10 mg by mouth 3 (three) times a day if needed. 2 Active hydroCHLOROthia zide (HYDRODiuril) 25 MG tablet Take 25 mg by mouth 1 (one) time each day. 3 Active rOPINIRole (Requip) 0.25 MG tablet TAKE 1 TABLET BY MOUTH ONCE DAILY 1 TO 3 HOURS BEFORE BEDTIME 3 Active Active Problems No known active problems Family History Medical History Relation Name Comments Breast cancer Mother Heart attack Mother Lung cancer Mother Thyroid cancer Mother Kidney cancer Sister Relation Name Status Comments Mother Sister Social History Tobacco Use Types Packs/Day Years Used Date Smoking Tobacco: Never Smokeless Tobacco: Never Tobacco Cessation:Counseling Given: Not Answered PHQ-2 Answer Date Recorded Patient Health Questionnaire-2 Score 0 10/15/2022 PHQ-2A Answer Date Recorded Depression Risk 0 10/15/2022 Comments Unknown Sex and Gender Information Value Date Recorded Sex Assigned at Not on file Legal Sex Female 7:42 PM EDT Gender Identity Not on file Sexual Orientation Not on file Last Filed Vital Signs Vital Sign Reading Time Taken Comments Blood Pressure 138/90 10/15/2022 8:23 AM EDT Pulse 83 10/15/2022 8:23 AM EDT Temperature - - Respiratory Rate 16 08/28/2021 8:38 AM EDT Oxygen Saturation - - Inhaled Oxygen Concentration - - Weight 90.7 kg (200 lb) 10/15/2022 8:23 AM EDT Height 167.6 cm (5' 6 ) 10/15/2022 8:23 AM EDT Body Mass Index 32.28 10/15/2022 8:23 AM EDT Plan of Treatment Health Maintenance Due Date Last Done Comments [facility]-HIV Screening 1970 [facility]-Hepatitis C Screening 1970 [facility]-/Child/Adol SDOH Screenings 1970 [facility]-Obesity Intervention 1976 [facility]- SDOH Screenings 1988 [facility]-Adult SDOH Screenings 1988 [facility]-DTaP,Tdap,and Td Vaccines (1 - Tdap) 1989 [facility]-Hepatitis B Vaccines (1 of 3 - 19+ 3-dose series) 1989 CT Colonography 12/02/2015 Colonoscopy 12/02/2015 FIT-DNA 12/02/2015 FIT 12/02/2015 FOBT 12/02/2015 Sigmoidoscopy 12/02/2015 [facility]-Colorectal Cancer Screening 12/02/2015 [facility]-Breast Cancer Screening 2020 [facility]-Pneumococcal Vaccine: 50+ Years (1 of 1 - PCV) 2020 [facility]-Zoster Vaccines (2 of 2) 01/23/2022 11/28/2021 [facility]-Depression Screening 10/16/2023 10/15/2022, 09/18 [id number] Vaccine ( season) 2024 11/28/2021, 01/18/2021, 06/07/2020, Additional history exists [facility]-Influenza Vaccine (#1) 2025 HPV Vaccines Aged Out No longer eligi ble based on patient's age to complete this topic [facility]-HIB Vaccines Aged Out No longer e ligible based on patient's age to complete this topic [facility]-Hepatitis A Vaccines Aged Out No longer eligible based on patient's age to complete this topic [facility]-IPV Vaccines Aged Out No longer e ligible based on patient's age to complete this topic [facility]-Rotavirus Vaccines Aged Out No lo nger eligible based on patient's age to complete this topic Insurance GENERIC BCBS/ANTHEM [address] [place] [address] ANTHEM Care Teams Nursing Clerk Relationship Specialty Start Date End Date John Bone MD [address] [place] [phone] PCP - General 09/29/20
--- OUTSIDE RECORDS SUMMARY | 2024-12-09 15:27 | XMS_ITS | Data Portability ---
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 Plan of Treatment Reminders Order Date Submit Date Provider Last Modified By Organization Details Last Modified Time Details Appointments None recorded. Lab HbA1c (hemoglobin A1c), blood 2024 025 [facility] 1 [facility], [address], [place] [address], [place], [address], 5 17:05:59 vitamin B12, serum 2024 025 [facility] 1 [facility], [address], [place] [address], [place], [address], 5 17:05:59 TSH + free T4, serum 2024 025 [facility] 1 [facility], [address], [place] [address], [place], [address], 5 17:05:59 CBC w/ auto diff 2024 025 [facility] 1 [facility], [address], [place] [address], [place], [address], 5 17:05:59 CMP, serum or plasma 2024 025 [facility] 1 [facility], [address], [place] [address], [place], [address], 5 17:05:59 Hepatitis C IgG Ab, qual, serum 2024 025 [email or web address] [address] [facility], [address], [place] [address], [place], [address], 5 17:05:59 rf (rheumatoid factor), serum 2024 025 [place] [address] [facility], [address], [place] [address], [place], [address], 5 17:05:59 BORA (antinuclea r antibodies) screen, ifa, serum 2024 025 [facility] 1 [facility], [address], [place], [place], [address], 5 17:05:59 ESR (erythrocyt e sedimentati on rate), blood 2023 024 [place] [facility], [address], [place] [address], [place], [address], 4 12:37:11 C reactive protein, QN, serum or plasma 2023 024 [place] [facility], [address], [place], [place], [address], 4 12:37:12 CBC w/ auto diff 2023 024 [place] [facility], [address], [place], [place], [address], 4 12:37:09 influenza virus A + B and SARS CoV 2 (COVID-19) and RSV RNA panel, MARIN+probe, respiratory specimen 2023 024 [email or web address] 0 [facility]- Floor 1, [address], [address], [place], [address], 4 09:13:13 HbA1c (hemoglobin A1c), blood 2023 024 [id number] [facility], [address], [place] [address], [place], [address], 4 07:59:04 hormone panel, serum or plasma 2023 024 [email or web address] [facility], [address], [place] [address], [place], [address], 4 07:59:03 vitamin B12, serum 2023 024 [email or web address] [facility], [address], [place] [address], [place], [address], 4 07:59:04 TSH + free T4, serum 2023 024 [email or web address] [facility], [address], [place] [address], [place], [address], 4 07:59:04 vitamin D, 25-hydroxy, total, serum 2023 024 [facility], [address], [place] [address], [place], [address], 4 07:59:04 CBC w/ auto diff 2023 024 [email or web address] [facility], [address], [place] [address], [place], [address], 4 07:59:03 CMP, serum or plasma 2023 024 [id number] [facility], [address], [place], [place], [address], 4 07:59:03 Referral None recorded. Procedures None recorded. Surgeries None recorded. Imaging None recorded. Medication Orders pantoprazol e 40 mg tablet,chema yed release 2024 025 [facility]acy #6345, [address] [place], [address], 5 15:38:53 lisinopril 10 mg tablet [email or web address] [place], [place] [address]Pharmacy #6[facility], [address] [place], [address], 5 15:38:11 duloxetine 60 mg capsule,del ayed release 2024 025 [facility] [address] [place], [address], 5 15:38:53 prednisone 5 mg tablets in a dose pack 2023 025 [facility] [address] [place], [address], 5 15:38:30 epinephrine 0.3 mg/0.3 mL injection, auto-inject or 2023 024 [facility] [address] [place], [address], 4 09:28:13 hydrochloro thiazide 12.5 mg tablet 2023 024 [facility] [address] [place], [address], 4 16:42:37 quetiapine 25 mg tablet 2023 024 [facility] [address] [place], [address], 4 16:42:37 amoxicillin 875 mg tablet 2023 024 [facility] [address] [place], [address], 4 08:56:18 quetiapine 25 mg tablet 2023 024 [facility] [address] [place], [address], 4 15:50:42 promethazin e 25 mg tablet 2023 024 [facility] [address] [place], [address], 4 15:49:29 Ubrelvy 100 mg tablet [email or web address] [place], [place] [address]Pharmacy #6345, [address] [place], [address], 4 16:38:17 hydrochloro thiazide 12.5 mg tablet 2023 024 [facility] [address] [place], [address], 4 15:49:29 duloxetine 60 mg capsule,del ayed release 2023 024 [facility] [address] [place], [address], 4 15:49:30 Patient TargetsNo targets recorded. Patient InstructionsNo instructions recorded. Reason for Referral None Reported. Results Created Date Observation Date Name Description Value Unit Range Abnormal Flag Note LastModifiedBy Organization Detail LastModifiedTime 09/18/19 24 09/19/2023 FSH+T ESTT+ LH+MS OG+ES TROGE N testosterone 25 NG/dL 4-50 Not Available [facility] ([facility]) [address] [facility], [place], [address], 09/25/2023 14:36:20 09/18/19 24 09/19/2023 FSH+T ESTT+ LH+MS OG+ES TROGE N LH 42.6 mIU/m L Adult Femal e Range Folli cular phase 2.4 - 12.6 Ovula tion phase 14.0 - 95.6 Lutea l phase 1.0 - 11.4 Postm enopa usal 7.7 - 58.5 Not Available [facility] ([facility]) [address] [place], [address], 09/25/2023 14:36:20 09/18/19 24 09/19/2023 FSH+T ESTT+ LH+MS OG+ES TROGE N FSH 67.8 mIU/m L Adult Femal e Range Folli cular phase 3.5 - 12.5 Ovula tion phase 4.7 - 21.5 Lutea l phase 1.7 - 7.7 Postm enopa usal 25.8 - 134.8 Not Available [facility] ([facility]) [address] [place], [address], 09/25/2023 14:36:20 09/18/19 24 09/19/2023 FSH+T ESTT+ LH+MS OG+ES TROGE N progesterone 0.2 NG/mL Folli cular phase 0.1 - 0.9 Lutea l phase 1.8 - 23.9 Ovula tion phase 0.1 - 12.0 Pregn ant First trime ster 11.0 - 44.3 Secon d trime ster 25.4 - 83.3 Third trime ster 58.7 - 214.0 Postm enopa usal 0.0 - 0.1 Not Available [facility] ([facility]) [address] [place], [address], 09/25/2023 14:36:20 09/18/19 24 09/25/2023 FSH+T ESTT+ LH+MS OG+ES TROGE N estrogens, total 143 pg/mL Prepu scot l < 40 Femal e Cycle : 1-10 Days 16 - 328 11-20 Days 34 - 501 21-30 Days 48 - 350 Post- Menop ausal 40 - 244 Not Available [facility] ([facility]) [address] [place], [address], 09/25/2023 14:36:20 09/18/19 24 09/19/2023 TSH+F REE T4 TSH 2.370 uIU/m L 0.450- 4.500 Not Available [facility] ([facility]) [address] [place], [address], 09/25/2023 14:36:21 09/18/19 24 09/19/2023 TSH+F REE T4 T4,free(dire ct) 0.94 NG/dL 0.82-1 .77 Not Available [facility] ([facility]) [address] [place], [address], 09/25/2023 14:36:21 09/18/19 24 09/19/2023 CBC WITH DIFFE RENTI AL/PL ATELE T WBC 9.5 x10e3 /uL 3.4-10 .8 Not Available [facility] ([facility]) [address] [place], [address], 09/25/2023 14:36:22 09/18/19 24 09/19/2023 CBC WITH DIFFE RENTI AL/PL ATELE T RBC 4.63 x10e6 /uL 3.77-5 .28 Not Available [facility] ([facility]) [address] [place], [address], 09/25/2023 14:36:22 09/18/19 24 09/19/2023 CBC WITH DIFFE RENTI AL/PL ATELE T hemoglobin 13.2 g/dL 11.1-1 5.9 Not Available [facility] ([facility]) [address] [place], [address], 09/25/2023 14:36:22 09/18/19 24 09/19/2023 CBC WITH DIFFE RENTI AL/PL ATELE T hematocrit 40.4 % 34.0-4 6.6 Not Available [facility] ([facility]) [address] [place], [address], 09/25/2023 14:36:22 09/18/19 24 09/19/2023 CBC WITH DIFFE RENTI AL/PL ATELE T MCV 87 fL 79-97 Not Available [facility] ([facility]) [address] [place], [address], 09/25/2023 14:36:22 09/18/19 24 09/19/2023 CBC WITH DIFFE RENTI AL/PL ATELE T MCH 28.5 pg 26.6-3 3.0 Not Available [facility] ([facility]) [address] [facility], [place], [address], 09/25/2023 14:36:22 09/18/19 24 09/19/2023 CBC WITH DIFFE RENTI AL/PL ATELE T MCHC 32.7 g/dL 31.5-3 5.7 Not Available [facility] ([facility]) [address] [place], [address], 09/25/2023 14:36:22 09/18/19 24 09/19/2023 CBC WITH DIFFE RENTI AL/PL ATELE T RDW 13.4 % 11.7-1 5.4 Not Available [facility] ([facility]) [address] [place], [address], 09/25/2023 14:36:22 09/18/19 24 09/19/2023 CBC WITH DIFFE RENTI AL/PL ATELE T platelets 299 x10e3 /uL 150-45 0 Not Available [facility] ([facility]) [address] [facility], [place], [address], 09/25/2023 14:36:22 09/18/19 24 09/19/2023 CBC WITH DIFFE RENTI AL/PL ATELE T neutrophils 63 % not estab. Not Available [facility] ([facility]) [address] [place], [address], 09/25/2023 14:36:22 09/18/19 24 09/19/2023 CBC WITH DIFFE RENTI AL/PL ATELE T lymphs 26 % not estab. Not Available [facility] ([facility]) [address] [facility], [place], [address], 09/25/2023 14:36:22 09/18/19 24 09/19/2023 CBC WITH DIFFE RENTI AL/PL ATELE T monocytes 8 % not estab. Not Available [facility] ([facility]) [address] [facility], [place], [address], 09/25/2023 14:36:22 09/18/19 24 09/19/2023 CBC WITH DIFFE RENTI AL/PL ATELE T eos 2 % not estab. Not Available [facility] ([facility]) [address] [facility], [place], [address], 09/25/2023 14:36:22 09/18/19 24 09/19/2023 CBC WITH DIFFE RENTI AL/PL ATELE T basos 1 % not estab. Not Available [facility] ([facility]) [address] [place], [address], 09/25/2023 14:36:22 09/18/19 24 09/19/2023 CBC WITH DIFFE RENTI AL/PL ATELE T immature cells [employer]ENT[employer]ES Not Available [facility] ([facility]) [address] [place], [address], 09/25/2023 14:36:22 09/18/19 24 09/19/2023 CBC WITH DIFFE RENTI AL/PL ATELE T neutrophils (absolute) 6.0 x10e3 /uL 1.4-7. 0 Not Available [facility] ([facility]) [address] [place], [address], 09/25/2023 14:36:22 09/18/19 24 09/19/2023 CBC WITH DIFFE RENTI AL/PL ATELE T lymphs (absolute) 2.5 x10e3 /uL 0.7-3. 1 Not Available [facility] ([facility]) [address] [facility], [place], [address], 09/25/2023 14:36:22 09/18/19 24 09/19/2023 CBC WITH DIFFE RENTI AL/PL ATELE T monocytes(ab solute) 0.7 x10e3 /uL 0.1-0. 9 Not Available [facility] ([facility]) [address] [facility], [place], [address], 09/25/2023 14:36:22 09/18/19 24 09/19/2023 CBC WITH DIFFE RENTI AL/PL ATELE T eos (absolute) 0.2 x10e3 /uL 0.0-0. 4 Not Available [facility] ([facility]) [address] [facility], [place], [address], 09/25/2023 14:36:22 09/18/19 24 09/19/2023 CBC WITH DIFFE RENTI AL/PL ATELE T baso (absolute) 0.1 x10e3 /uL 0.0-0. 2 Not Available [facility] ([facility]) [address] [facility], [place], [address], 09/25/2023 14:36:22 09/18/19 24 09/19/2023 CBC WITH DIFFE RENTI AL/PL ATELE T immature granulocytes 0 % not estab. Not Available [facility] ([facility]) [address] [facility], [place], [address], 09/25/2023 14:36:22 09/18/19 24 09/19/2023 CBC WITH DIFFE RENTI AL/PL ATELE T immature grans (abs) 0.0 x10e3 /uL 0.0-0. 1 Not Available [facility] ([facility]) [address] [facility], [place], [address], 09/25/2023 14:36:22 09/18/19 24 09/19/2023 CBC WITH DIFFE RENTI AL/PL ATELE T NRBC [employer]ENTAT[employer]ES Not Available [facility] ([facility]) [address] [facility], [place], [address], 09/25/2023 14:36:22 09/18/19 24 09/19/2023 CBC WITH DIFFE RENTI AL/PL ATELE T hematology comments: [employer] REPRESENTATIVES Not Available [facility] ([facility]) [address] [facility], [place], [address], 09/25/2023 14:36:22 09/18/19 24 09/19/2023 COMP. METAB OLIC PANEL (14) glucose 93 mg/dL 70-99 Not Available [facility] ([facility]) [address] [facility] [place], [address], 09/25/2023 14:36:23 09/18/19 24 09/19/2023 COMP. METAB OLIC PANEL (14) BUN 10 mg/dL 6-24 Not Available [facility] ([facility]) [address] [facility] [place], [address], 09/25/2023 14:36:23 09/18/19 24 09/19/2023 COMP. METAB OLIC PANEL (14) creatinine 0.80 mg/dL 0.57-1 .00 Not Available [facility] ([facility]) [address] [facility] [place], [address], 09/25/2023 14:36:23 09/18/19 24 09/19/2023 COMP. METAB OLIC PANEL (14) eGFR 89 mL/mi n/1.7 3 >59 Not Available [facility] ([facility]) [address] [facility] [place], [address], 09/25/2023 14:36:23 09/18/19 24 09/19/2023 COMP. METAB OLIC PANEL (14) BUN/creatini ne ratio 13 9-23 Not Available [facility] ([facility]) [address] [facility], [place], [address], 09/25/2023 14:36:23 09/18/19 24 09/19/2023 COMP. METAB OLIC PANEL (14) sodium 141 mmol/ L 134-14 4 Not Available [facility] ([facility]) [address] [facility], [place], [address], 09/25/2023 14:36:23 09/18/19 24 09/19/2023 COMP. METAB OLIC PANEL (14) potassium 4.5 mmol/ L 3.5-5. 2 Not Available [facility] ([facility]) [address] [facility], [place], [address], 09/25/2023 14:36:23 09/18/19 24 09/19/2023 COMP. METAB OLIC PANEL (14) chloride 100 mmol/ L 96-106 Not Available [facility] ([facility]) [address] [facility], [place], [address], 09/25/2023 14:36:23 09/18/19 24 09/19/2023 COMP. METAB OLIC PANEL (14) carbon dioxide, total 25 mmol/ L 20-29 Not Available [facility] ([facility]) [address] [facility], [place], [address], 09/25/2023 14:36:23 09/18/19 24 09/19/2023 COMP. METAB OLIC PANEL (14) calcium 9.4 mg/dL 8.7-10 .2 Not Available [facility] ([facility]) [address] [place], [address], 09/25/2023 14:36:23 09/18/19 24 09/19/2023 COMP. METAB OLIC PANEL (14) protein, total 7.1 g/dL 6.0-8. 5 Not Available [facility] ([facility]) [address] [place] [place], [address], 09/25/2023 14:36:23 09/18/19 24 09/19/2023 COMP. METAB OLIC PANEL (14) albumin 4.4 g/dL 3.8-4. 9 Not Available [facility] ([facility]) [address] [facility], [place], [address], 09/25/2023 14:36:23 09/18/19 24 09/19/2023 COMP. METAB OLIC PANEL (14) globulin, total 2.7 g/dL 1.5-4. 5 Not Available [facility] ([facility]) [address] [facility], [place], [address], 09/25/2023 14:36:23 09/18/19 24 09/19/2023 COMP. METAB OLIC PANEL (14) A/G ratio 1.6 1.2-2. 2 Not Available [facility] ([facility]) [address] [facility], [place], [address], 09/25/2023 14:36:23 09/18/19 24 09/19/2023 COMP. METAB OLIC PANEL (14) bilirubin, total 0.4 mg/dL 0.0-1. 2 Not Available [facility] ([facility]) [address] [facility], [place], [address], 09/25/2023 14:36:23 09/18/19 24 09/19/2023 COMP. METAB OLIC PANEL (14) alkaline phosphatase 104 IU/L 44-121 Not Available [facility] ([facility]) [address] [facility], [place], [address], 09/25/2023 14:36:23 09/18/19 24 09/19/2023 COMP. METAB OLIC PANEL (14) AST (SGOT) 19 IU/L 0-40 Not Available [facility] ([facility]) [address] [facility], [place], [address], 09/25/2023 14:36:23 09/18/19 24 09/19/2023 COMP. METAB OLIC PANEL (14) ALT (SGPT) 21 IU/L 0-32 Not Available [facility] ([facility]) [address] [facility], [place], [address], 09/25/2023 14:36:23 09/18/19 24 09/19/2023 HEMOG LOBIN A1C hemoglobin A1C 6.1 % 4.8-5. 6 above high normal Predi abete s: 5.7 - 6.4 Diabe alisson: >6.4 Glyce laura contr ol for adult s with diabe alisson: <7.0 Not Available [facility] ([facility]) [address] [facility], [place], [address], 09/25/2023 14:36:24 09/18/19 24 09/19/2023 VITAM IN D, 25-HY DROXY vitamin D, 25-hydroxy 40.3 NG/mL 30.0-1 00.0 Vitam in D defic iency has been defin ed by the Insti tute of Medic ine and an Endoc rine Socie ty pract ice guide line as a level of serum 25-OH vitam in D less than 20 ng/mL (1,2) . The Endoc rine Socie ty went on to furth er defin e vitam in D insuf ficie ncy as a level betwe en 21 and 29 ng/mL (2). 1. IOM (Inst itute of Medic ine). 2009. Dieta ry refer ence christine es for calci um and D. Nico barber [place]: The Nat[facility] . 2. Archana montes MF, Chano more [place], Nash off-F errar i PACHECO, et al. Evalu ation , treat ment, and preve ntion of vitam in D defic iency : an Endoc rine Socie ty clini clarissa pract ice guide line. JCEM. 2010; 96(7) :1911 -30. Not Available [facility] ([facility]) [address] [facility], [place], [address], 09/25/2023 14:36:25 09/18/19 24 09/19/2023 VITAM IN B12 vitamin B12 1072 pg/mL 232-12 45 Not Available [facility] ([facility]) [address] [facility], [place], [address], 09/25/2023 14:36:26 10/15/19 24 10/15/2023 influ jeromy virus A + B and SARS CoV 2 (COVI D-19) and RSV RNA panel , MARIN+p robe, respi rator y speci men FLU A negati ve Not Available [facility]- Floor 1, [address], [place], [address], 10/15/2023 08:35:30 10/15/19 24 10/15/2023 influ jeromy virus A + B and SARS CoV 2 (COVI D-19) and RSV RNA panel , MARIN+p robe, respi rator y speci men FLU B negati ve Not Available [facility]- Floor 1, [address], [place], [address], 10/15/2023 08:35:30 10/15/19 24 10/15/2023 influ jeromy virus A + B and SARS CoV 2 (COVI D-19) and RSV RNA panel , MARIN+p robe, respi rator y speci men SARS-CoV-2 negati ve Not Available [facility]- Floor 1, [address], [place], [address], 10/15/2023 08:35:30 10/15/19 24 10/15/2023 influ jeromy virus A + B and SARS CoV 2 (COVI D-19) and RSV RNA panel , MARIN+p robe, respi rator y speci men RSV negati ve Not Available [facility]- Floor 1, [address], [place], [address], 10/15/2023 08:35:30 03/16/20 24 03/17/2024 CBC WITH DIFFE RENTI AL/PL ATELE T WBC 12.3 x10e3 /uL 3.4-10 .8 above high normal Not Available [facility] ([facility]) [address] [facility], [place], [address], 03/17/2024 12:37:09 03/16/20 24 03/17/2024 CBC WITH DIFFE RENTI AL/PL ATELE T RBC 4.62 x10e6 /uL 3.77-5 .28 normal Not Available [facility] ([facility]) [address] [facility], [place], [address], 03/17/2024 12:37:09 03/16/2003/17/2024 CBC WITH DIFFE RENTI AL/PL ATELE T hemoglobin 13.2 g/dL 11.1-1 5.9 normal Not Available [facility] ([facility]) [address] [place], [address], 03/17/2024 12:37:09 03/16/2003/17/2024 CBC WITH DIFFE RENTI AL/PL ATELE T hematocrit 42.1 % 34.0-4 6.6 normal Not Available [facility] ([facility]) [address] [facility], [place], [address], 03/17/2024 12:37:09 03/16/2003/17/2024 CBC WITH DIFFE RENTI AL/PL ATELE T MCV 91 fL 79-97 normal Not Available [facility] ([facility]) [address] [place], [address], 03/17/2024 12:37:09 03/16/2003/17/2024 CBC WITH DIFFE RENTI AL/PL ATELE T MCH 28.6 pg 26.6-3 3.0 normal Not Available [facility] ([facility]) [address] [place], [address], 03/17/2024 12:37:09 03/16/2003/17/2024 CBC WITH DIFFE RENTI AL/PL ATELE T MCHC 31.4 g/dL 31.5-3 5.7 below low normal Not Available [facility] ([facility]) [address] [facility], [place], [address], 03/17/2024 12:37:09 03/16/2003/17/2024 CBC WITH DIFFE RENTI AL/PL ATELE T RDW 14.5 % 11.7-1 5.4 Not Available [facility] ([facility]) [address] [facility], [place], [address], 03/17/2024 12:37:09 03/16/2003/17/2024 CBC WITH DIFFE RENTI AL/PL ATELE T platelets 349 x10e3 /uL 150-45 0 normal Not Available [facility] ([facility]) [address] [facility], [place], [address], 03/17/2024 12:37:09 03/16/2003/17/2024 CBC WITH DIFFE RENTI AL/PL ATELE T neutrophils 71 % not estab. normal Not Available [facility] ([facility]) [address] [facility], [place], [address], 03/17/2024 12:37:09 03/16/20 24 03/17/2024 CBC WITH DIFFE RENTI AL/PL ATELE T lymphs 22 % not estab. normal Not Available [facility] ([facility]) [address] [facility], [place], [address], 03/17/2024 12:37:09 03/16/20 24 03/17/2024 CBC WITH DIFFE RENTI AL/PL ATELE T monocytes 5 % not estab. normal Not Available [facility] ([facility]) [address] [facility], [place], [address], 03/17/2024 12:37:09 03/16/20 24 03/17/2024 CBC WITH DIFFE RENTI AL/PL ATELE T eos 0 % not estab. normal Not Available [facility] ([facility]) [address] [facility], [place], [address], 03/17/2024 12:37:09 03/16/20 24 03/17/2024 CBC WITH DIFFE RENTI AL/PL ATELE T basos 1 % not estab. normal Not Available [facility] ([facility]) [address] [facility], [place], [address], 03/17/2024 12:37:09 03/16/20 24 03/17/2024 CBC WITH DIFFE RENTI AL/PL ATELE T immature cells [employer]ENT[employer]IVES Not Available [facility] ([facility]) [address] [facility], [place], [address], 03/17/2024 12:37:09 03/16/2003/17/2024 CBC WITH DIFFE RENTI AL/PL ATELE T neutrophils (absolute) 8.8 x10e3 /uL 1.4-7. 0 above high normal Not Available [facility] ([facility]) [address] [facility], [place], [address], 03/17/2024 12:37:09 03/16/20 24 03/17/2024 CBC WITH DIFFE RENTI AL/PL ATELE T lymphs (absolute) 2.7 x10e3 /uL 0.7-3. 1 normal Not Available [facility] ([facility]) [address] [facility], [place], [address], 03/17/2024 12:37:09 03/16/20 24 03/17/2024 CBC WITH DIFFE RENTI AL/PL ATELE T monocytes(ab solute) 0.7 x10e3 /uL 0.1-0. 9 normal Not Available [facility] ([facility]) [address] [facility], [place], [address], 03/17/2024 12:37:09 03/16/20 24 03/17/2024 CBC WITH DIFFE RENTI AL/PL ATELE T eos (absolute) 0.1 x10e3 /uL 0.0-0. 4 normal Not Available [facility] ([facility]) [address] [facility], [place], [address], 03/17/2024 12:37:09 03/16/20 24 03/17/2024 CBC WITH DIFFE RENTI AL/PL ATELE T baso (absolute) 0.1 x10e3 /uL 0.0-0. 2 normal Not Available [facility] ([facility]) [address] [facility], [place], [address], 03/17/2024 12:37:09 03/16/2003/17/2024 CBC WITH DIFFE RENTI AL/PL ATELE T immature granulocytes 1 % not estab. Not Available [facility] ([facility]) [address] [facility], [place], [address], 03/17/2024 12:37:09 03/16/20 24 03/17/2024 CBC WITH DIFFE RENTI AL/PL ATELE T immature grans (abs) 0.1 x10e3 /uL 0.0-0. 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 Not Available [facility] ([facility]) [address] [facility], [place], [address], 03/17/2024 12:37:09 03/16/20 24 03/17/2024 SEDIM ENTAT ION RATE- WESTE RGREN sedimentatio n rate-westerg red 18 mm/HR 0-40 normal Not Available [facility] ([facility]) [address] [place], [address], 03/17/2024 12:37:11 03/16/20 24 03/17/2024 C-NEENA CTIVE PROTE IN, QUANT C-reactive protein, quant 6 mg/L 0-10 normal Not Available [facility] ([facility]) [address] [place], [address], 03/17/2024 12:37:12 07/15/19 25 07/16/2024 TSH+F REE T4 TSH 2.400 uIU/m L 0.450- 4.500 normal Not Available [facility] ([facility]) [address] [place], [address], 07/19/2024 12:36:21 07/15/19 25 07/16/2024 TSH+F REE T4 T4,free(dire ct) 0.84 NG/dL 0.82-1 .77 normal Not Available [facility] ([facility]) [address] [place], [address], 07/19/2024 12:36:21 07/15/19 25 07/16/2024 CBC WITH DIFFE RENTI AL/PL ATELE T WBC 7.4 x10e3 /uL 3.4-10 .8 normal Not Available [facility] ([facility]) [address] [place], [address], 07/19/2024 12:36:22 07/15/19 25 07/16/2024 CBC WITH DIFFE RENTI AL/PL ATELE T RBC 4.61 x10e6 /uL 3.77-5 .28 normal Not Available [facility] ([facility]) [address] [place], [address], 07/19/2024 12:36:22 07/15/19 07/16/2024 CBC WITH DIFFE RENTI AL/PL ATELE T hemoglobin 13.3 g/dL 11.1-1 5.9 normal Not Available [facility] ([facility]) [address] [place], [address], 07/19/2024 12:36:22 07/15/19 25 07/16/2024 CBC WITH DIFFE RENTI AL/PL ATELE T hematocrit 41.8 % 34.0-4 6.6 normal Not Available [facility] ([facility]) [address] [place], [address], 07/19/2024 12:36:22 07/15/1907/16/2024 CBC WITH DIFFE RENTI AL/PL ATELE T MCV 91 fL 79-97 normal Not Available [facility] ([facility]) [address] [place], [address], 07/19/2024 12:36:22 07/15/19 25 07/16/2024 CBC WITH DIFFE RENTI AL/PL ATELE T MCH 28.9 pg 26.6-3 3.0 normal Not Available [facility] ([facility]) [address] [place], [address], 07/19/2024 12:36:22 07/15/19 25 07/16/2024 CBC WITH DIFFE RENTI AL/PL ATELE T MCHC 31.8 g/dL 31.5-3 5.7 normal Not Available [facility] ([facility]) [address] [place], [address], 07/19/2024 12:36:22 07/15/19 25 07/16/2024 CBC WITH DIFFE RENTI AL/PL ATELE T RDW 14.0 % 11.7-1 5.4 Not Available [facility] ([facility]) [address] [place], [address], 07/19/2024 12:36:22 07/15/19 25 07/16/2024 CBC WITH DIFFE RENTI AL/PL ATELE T platelets 303 x10e3 /uL 150-45 0 normal Not Available [facility] ([facility]) [address] [facility], [place], [address], 07/19/2024 12:36:22 07/15/19 25 07/16/2024 CBC WITH DIFFE RENTI AL/PL ATELE T neutrophils 65 % not estab. normal Not Available [facility] ([facility]) [address] [facility], [place], [address], 07/19/2024 12:36:22 07/15/19 25 07/16/2024 CBC WITH DIFFE RENTI AL/PL ATELE T lymphs 23 % not estab. normal Not Available [facility] ([facility]) [address] [facility], [place], [address], 07/19/2024 12:36:22 07/15/19 25 07/16/2024 CBC WITH DIFFE RENTI AL/PL ATELE T monocytes 8 % not estab. normal Not Available [facility] ([facility]) [address] [facility], [place], [address], 07/19/2024 12:36:22 07/15/19 25 07/16/2024 CBC WITH DIFFE RENTI AL/PL ATELE T eos 3 % not estab. normal Not Available [facility] ([facility]) [address] [facility], [place], [address], 07/19/2024 12:36:22 07/15/19 25 07/16/2024 CBC WITH DIFFE RENTI AL/PL ATELE T basos 1 % not estab. normal Not Available [facility] ([facility]) [address] [facility], [place], [address], 07/19/2024 12:36:22 07/15/19 25 07/16/2024 CBC WITH DIFFE RENTI AL/PL ATELE T immature cells [employer]ENT[employer]IVES Not Available [facility] ([facility]) [address] [facility], [place], [address], 07/19/2024 12:36:22 07/15/19 25 07/16/2024 CBC WITH DIFFE RENTI AL/PL ATELE T neutrophils (absolute) 4.8 x10e3 /uL 1.4-7. 0 normal Not Available [facility] ([facility]) [address] [facility], [place], [address], 07/19/2024 12:36:22 07/15/19 25 07/16/2024 CBC WITH DIFFE RENTI AL/PL ATELE T lymphs (absolute) 1.7 x10e3 /uL 0.7-3. 1 normal Not Available [facility] ([facility]) [address] [place], [address], 07/19/2024 12:36:22 07/15/19 25 07/16/2024 CBC WITH DIFFE RENTI AL/PL ATELE T monocytes(ab solute) 0.6 x10e3 /uL 0.1-0. 9 normal Not Available [facility] ([facility]) [address] [place], [address], 07/19/2024 12:36:22 07/15/19 25 07/16/2024 CBC WITH DIFFE RENTI AL/PL ATELE T eos (absolute) 0.2 x10e3 /uL 0.0-0. 4 normal Not Available [facility] ([facility]) [address] [place], [address], 07/19/2024 12:36:22 07/15/19 25 07/16/2024 CBC WITH DIFFE RENTI AL/PL ATELE T baso (absolute) 0.1 x10e3 /uL 0.0-0. 2 normal Not Available [facility] ([facility]) [address] [place], [address], 07/19/2024 12:36:22 07/15/19 25 07/16/2024 CBC WITH DIFFE RENTI AL/PL ATELE T immature granulocytes 0 % not estab. Not Available [facility] ([facility]) [address] [facility], [place], [address], 07/19/2024 12:36:22 07/15/19 25 07/16/2024 CBC WITH DIFFE RENTI AL/PL ATELE T immature grans (abs) 0.0 x10e3 /uL 0.0-0. 1 Not Available [facility] ([facility]) [address] [facility], [place], [address], 07/19/2024 12:36:22 07/15/19 25 07/16/2024 CBC WITH DIFFE RENTI AL/PL ATELE T NRBC [employer] REPRESENTATIVES Not Available [facility] ([facility]) [address] [facility], [place], [address], 07/19/2024 12:36:22 07/15/19 25 07/16/2024 CBC WITH DIFFE RENTI AL/PL ATELE T hematology comments: [employer] SALES REPRESENTATIVES Not Available [facility] ([facility]) [address] [facility], [place], [address], 07/19/2024 12:36:22 07/15/19 25 07/16/2024 COMP. METAB OLIC PANEL (14) glucose 106 mg/dL 70-99 above high normal Not Available [facility] ([facility]) [address] [facility], [place], [address], 07/19/2024 12:36:24 07/15/19 25 07/16/2024 COMP. METAB OLIC PANEL (14) BUN 10 mg/dL 6-24 normal Not Available [facility] ([facility]) [address] [facility], [place], [address], 07/19/2024 12:36:24 07/15/19 25 07/16/2024 COMP. METAB OLIC PANEL (14) creatinine 0.69 mg/dL 0.57-1 .00 normal Not Available [facility] ([facility]) [address] [facility], [place], [address], 07/19/2024 12:36:24 07/15/19 25 07/16/2024 COMP. METAB OLIC PANEL (14) eGFR 104 mL/mi n/1.7 3 >59 normal Not Available [facility] ([facility]) [address] [facility] [place], [address], 07/19/2024 12:36:24 07/15/19 25 07/16/2024 COMP. METAB OLIC PANEL (14) BUN/creatini ne ratio 14 9-23 normal Not Available [facility] ([facility]) [address] [facility] [place], [address], 07/19/2024 12:36:24 07/15/19 25 07/16/2024 COMP. METAB OLIC PANEL (14) sodium 139 mmol/ L 134-14 4 normal Not Available [facility] ([facility]) [address] [facility], [place], [address], 07/19/2024 12:36:24 07/15/19 25 07/16/2024 COMP. METAB OLIC PANEL (14) potassium 3.9 mmol/ L 3.5-5. 2 normal Not Available [facility] ([facility]) [address] [facility], [place], [address], 07/19/2024 12:36:24 07/15/19 25 07/16/2024 COMP. METAB OLIC PANEL (14) chloride 100 mmol/ L 96-106 normal Not Available [facility] ([facility]) [address] [facility] [place], [address], 07/19/2024 12:36:24 07/15/19 25 07/16/2024 COMP. METAB OLIC PANEL (14) carbon dioxide, total 25 mmol/ L 20-29 normal Not Available [facility] ([facility]) [address] [facility] [place], [address], 07/19/2024 12:36:24 07/15/19 25 07/16/2024 COMP. METAB OLIC PANEL (14) calcium 9.6 mg/dL 8.7-10 .2 normal Not Available [facility] ([facility]) [address], [place], [address], 07/19/2024 12:36:24 07/15/19 25 07/16/2024 COMP. METAB OLIC PANEL (14) protein, total 7.1 g/dL 6.0-8. 5 normal Not Available [facility] ([facility]) [address] [place], [address], 07/19/2024 12:36:24 07/15/19 25 07/16/2024 COMP. METAB OLIC PANEL (14) albumin 4.2 g/dL 3.8-4. 9 normal Not Available [facility] ([facility]) [address] [place], [address], 07/19/2024 12:36:24 07/15/19 25 07/16/2024 COMP. METAB OLIC PANEL (14) globulin, total 2.9 g/dL 1.5-4. 5 Not Available [facility] ([facility]) [address] [facility] [place], [address], 07/19/2024 12:36:24 07/15/19 25 07/16/2024 COMP. METAB OLIC PANEL (14) bilirubin, total 0.4 mg/dL 0.0-1. 2 normal Not Available [facility] ([facility]) [address] [facility] [place], [address], 07/19/2024 12:36:24 07/15/19 25 07/16/2024 COMP. METAB OLIC PANEL (14) alkaline phosphatase 97 IU/L 44-121 normal Not Available [facility] ([facility]) [address] [place], [address], 07/19/2024 12:36:24 07/15/19 25 07/16/2024 COMP. METAB OLIC PANEL (14) AST (SGOT) 47 IU/L 0-40 above high normal Not Available [facility] ([facility]) [address] [facility], [place], [address], 07/19/2024 12:36:24 07/15/19 25 07/16/2024 COMP. METAB OLIC PANEL (14) ALT (SGPT) 55 IU/L 0-32 above high normal Not Available [facility] ([facility]) [address] [facility], [place], [address], 07/19/2024 12:36:24 07/15/19 25 07/16/2024 HCV ANTIB BERTHA RFX TO QUANT PCR HCV Ab NON REACTI VE non reacti ve Not Available [facility] ([facility]) [address] [facility], [place], [address], 07/19/2024 12:36:25 07/15/19 25 07/16/2024 HCV ANTIB BERTHA RFX TO QUANT PCR interpretati on: COMMEN T Not infec austin with HCV unles s early or acute infec tion is suspe cted (whic h may be delay ed in an immun ocomp romis ed indiv idual ), or other evide nce exist s to indic ate HCV infec tion. Not Available [facility] ([facility]) [address] [facility], [place], [address], 07/19/2024 12:36:25 07/15/19 25 07/16/2024 HEMOG LOBIN A1C hemoglobin A1C 6.2 % 4.8-5. 6 above high normal Predi abete s: 5.7 - 6.4 Diabe alisson: >6.4 Glyce laura contr ol for adult s with diabe alisson: <7.0 Not Available [facility] ([facility]) [address] [place], [address], 07/19/2024 12:36:26 07/15/19 25 07/16/2024 RHEUM ATOID FACTO R (RF) rheumatoid factor (rf) 12.0 IU/mL <14.0 normal Not Available [facility] ([facility]) [address] [facility], [place], [address], 07/19/2024 12:36:27 07/15/19 25 07/16/2024 VITAM IN B12 vitamin B12 848 pg/mL 232-12 45 normal Not Available [facility] ([facility]) [address] [facility], [place], [address], 07/19/2024 12:36:28 07/15/19 25 07/19/2024 BORA BY IFA RFX TITER /MICHAEL MICAELA BORA by ifa rfx titer/patter n POSITI VE abnormal Negat billy <1:80 Borde rline 1:80 Posit billy >1:80 Not Available [facility] ([facility]) [address] [facility], [place], [address], 07/19/2024 12:36:29 07/15/19 25 07/19/2024 BORA BY IFA RFX TITER /MICHAEL MICAELA homogeneous pattern 1:80 ICAP chantal randall re: AC-1 Not Available [facility] ([facility]) [address] [place], [address], 07/19/2024 12:36:29 07/15/19 25 07/19/2024 BORA BY IFA RFX TITER /MICHAEL MICAELA nucleolar pattern [employer] SAL[employer] REPRESENTATIVES Not Available [facility] ([facility]) [address] [place], [address], 07/19/2024 12:36:29 07/15/19 25 07/19/2024 BORA BY IFA RFX TITER /MICHAEL MICAELA speckled pattern [employer] SAL[employer] REPRESENTATIVES Not Available [facility] ([facility]) [address] [place], [address], 07/19/2024 12:36:29 07/15/19 25 07/19/2024 BORA BY IFA RFX TITER /MICHAEL MICAELA centromere pattern [employer] SALES REPRESENTATIVES Not Available [facility] ([facility]) [address] [facility], [place], [address], 07/19/2024 12:36:29 07/15/19 25 07/19/2024 BORA BY IFA RFX TITER /MICHAEL MICAELA spindle apparatus pattern [employer] SALES REPRESENTATIVES Not Available [facility] ([facility]) [address] [facility], [place], [address], 07/19/2024 12:36:29 07/15/19 25 07/19/2024 BORA BY IFA RFX TITER /MICHAEL MICAELA nuclear membrane pattern [employer] SALES REPRESENTATIVES Not Available [facility] ([facility]) [address] [facility], [place], [address], 07/19/2024 12:36:29 07/15/19 25 07/19/2024 BORA BY IFA RFX TITER /MICHAEL MICAELA midbody pattern [employer] SALES REPRESENTATIVES Not Available [facility] ([facility]) [address] [facility], [place], [address], 07/19/2024 12:36:29 07/15/19 25 07/19/2024 BORA BY IFA RFX TITER /MICHAEL MICAELA nuclear dot pattern [employer] SALES REPRESENTATIVES Not Available [facility] ([facility]) [address] [place], [address], 07/19/2024 12:36:29 07/15/19 25 07/19/2024 BORA BY IFA RFX TITER /MICHAEL MICAELA pcna pattern [employer] SALES REPRESENTATIVES Not Available [facility] ([facility]) [address] [place], [address], 07/19/2024 12:36:29 07/15/19 25 07/19/2024 BORA BY IFA RFX TITER /MICHAEL MICAELA centriole pattern [employer] SALES REPRESENTATIVES Not Available [facility] ([facility]) [address] [place], [address], 07/19/2024 12:36:29 07/15/19 25 07/19/2024 BORA BY IFA RFX TITER /MICHAEL MICAELA note: [facility] ----- ----- --- ----- ----- ----- ----- ----- ----- ----- ----- ----- Homog eneou s Syste laura Lupus Eryth emato zahra, Drug Induc ed Syste laura Lupus Eryth emato zahra, Chron ic Autoi mmune hepat itis, Christian ile Idiop athic Arthr itis ----- ----- --- ----- ----- ----- ----- ----- ----- ----- ----- ----- Speck led Sjogr en Syndr ome, Syste laura Lupus Eryth emato zahra, Subac [place] Cutan eous Lupus , Neona silvia Lupus , Conge nital Heart Block , Mixed Conne ctive Tissu e Disea se, Scler oderm a-dif fuse, Scler oderm a-Aut oimmu ne Myosi tis Overl ap Syndr ome, Syste laura Lupus Eryth emato zahra-S clero derma -Auto immun e Myosi tis Overl ap Syndr ome, Syste laura Autoi mmune Rheum atic Disea se, Jasmina Jones ctive Tissu e Disea se ----- ----- --- ----- ----- ----- ----- ----- ----- ----- ----- ----- Nucle olar Syste laura Scler osis, Scler oderm a-Aut oimmu ne Myosi tis Overl ap Syndr ome, Sjogr en Syndr ome, Lia ud pheno jose luis , Pulmo nary Arter ial Hyper tensi on, Syste laura Autoi mmune Rheum atic Disea se, Cance r ----- ----- --- ----- ----- ----- ----- ----- ----- ----- ----- ----- Centr omere Scler oderm a-CRE ST, Limit ed Cutan eous SSc, Lia ud's Pheno jose luis , Prima ry Bilia ry [place]ola ngiti s ----- ----- --- ----- ----- ----- ----- ----- ----- ----- ----- ----- Nucle ar Dot Prima ry Bilia ry Chola ngiti s ----- ----- --- ----- ----- ----- ----- ----- ----- ----- ----- ----- Nucle ar Prima ry Bilia ry Chola ngiti s, Autoi mmune Membr ane Hepat itis/ Liver disea se, Syste laura Autoi mmune Rheum atic Disea se, Autoi mmune Cytop enias , Linea r Scler oderm a, Antip hosph olipi d Syndr ome ----- ----- --- ----- ----- ----- ----- ----- ----- ----- ----- ----- Not Available [facility] ([facility]) [address] [facility], [place], [address], 07/19/2024 12:36:29 12/08/1911/24/2023 sleep study , diagn ostic (PROC ) No observ ation record ed. [email or web address] [facility] [address] [place] [address] [place], [address], 12/10/2023 11:52:18 Result Notes None recorded. Problems Name Problem SNOMED Code Status Onset Date Resolution Date Notes Provider Name and Address Organization Details Recorded Time Migraine 41194140 Active Not Available [facility] 3 17:26:48 Constipati on 58933995 Active Aida Ki cantu MARYANNE - [facility] - [place] & 4 14:19:53 Acute bronchitis 27997150 Active Augustther null, MARYANNE - [facility] - & 4 14:19:53 Emotional state finding 745740376 Active Augustther null, MARYANNE - [facility] - & 4 14:19:53 Irritable bowel syndrome 94292162 Active Augustther null, MARYANNE - [facility] - & 4 14:19:53 Erythrocyt osis 411317757 Active Augustther null, MARYANNE - [facility] - & 4 14:19:53 Body mass index 30+ - obesity 334596424 Active August null, MARYANNE - [facility] - & 4 14:19:53 Sensorineu ral hearing loss of bilateral ears 243016334 Active August null, MARYANNE - [facility] - & 4 14:19:53 Chronic interstiti al cystitis 683546268 Active August null, MARYANNE - [facility] - & 4 14:19:53 Menopausal symptom 26683136 Active August null, MARYANNE - [facility] - & 4 14:19:53 Thyroid nodule 536337640 Active August null, MARYANNE - [facility] - & 4 14:19:53 Chronic pain syndrome 204345469 Active Augustther null, MARYANNE - [facility] - & 4 14:19:53 Epidermoid cyst 771834679 Active Augustther null, [place]ANNE - [facility] - [place] & 4 14:19:53 Family history of coronary arterioscl erosis 509590311 Active Augustther null, [place] - [facility] - [place] & 4 14:19:53 Mass of soft tissue 478831417 Active Augustther null, MARYANNE - [facility] - & 4 14:19:53 Posttrauma tic stress disorder 95832242 Active Augustther null, [place] - [facility] [place] 4 14:19:53 Allergic rhinitis 29247321 Active August null, [place] [facility] [place] 4 14:19:53 Subjective tinnitus 52363788 Active August null, [place] [facility] - [place] 4 14:19:53 Liver enzymes level above reference range 489078210 Active Augustther null, [place] [facility] [place] 4 14:19:53 Sleep apnea 62244240 Active August null, [place] - [facility] [place] 4 14:19:53 Severe major depression , single episode, without psychotic features 85570761 Active August null, [place] [facility] [place] 4 14:19:53 Hypersomni a 94014123 Active August null, [place] - [facility] [place] 4 14:19:53 Essential hypertensi on 02395055 Active 2021 Not Available [facility] 3 17:26:48 Fatigue 22319414 Active 2021ther null, [place] - [facility] - [place] & [place] 4 14:19:53 Skin lesion 39553165 Active 2021ther null, [place] [facility] [place] 4 14:19:53 Obesity 891752966 Active 2021ther null, [place] [facility] [place] & [place] 4 14:19:53 Depressive disorder 27015835 Active 2022ther null, [place] [facility] [place] 4 14:19:53 Chronic insomnia 825714377 Active 2022ther null, [place] - [facility] [place] & [place] 4 14:19:53 Morbid obesity 522297509 Active 2022 Ki null, [place] [facility] [place] & [place] 4 14:19:53 Prediabete s 741866243 Active 2022 Ki null, [place] [facility] [place] 4 14:19:53 Degenerati on of lumbar interverte bral disc 47351351 Active 2022 Ki null, [place] [facility] [place] 4 14:19:53 Malodorous urine 306789807 Active 2022 [place] null, [place] - [facility] [place] & [place] 4 14:19:53 Vitamin D deficiency 80353010 Active 2023 Adam Cheung NP [address], [address], [place], [address] , [place] [facility] [place] 4 15:48:34 Snoring 61499156 Active 2023 Adam Cheung NP [address], [address], [place], [address] , [place] [facility] [place] 4 16:38:06 Daytime somnolence 244611246316 Active 2023 Adam Cheung NP [address], [address], [place], [address] , [place] [facility] [place] 4 16:40:56 Maculopapu lar eruption 791152891 Active 2023 Adam Cheung NP [address], [address], [place], [address] , [place] [facility] [place] 4 09:15:30 Vasculitis of the skin 57381949 Active 2024 yumi appiah null, [place] [facility] [place] 5 13:23:33 Pain of multiple joints 21499188 Active 2024 Adam Cheung NP [address], [address], [place], [address] , [place] [facility] [place] 5 15:35:45 Obstructiv e sleep apnea syndrome 59929815 Active 2024 Adam Cheung NP [address], [address], [place], [address] , [place] - [facility] - [place] & [place] 5 20:31:19 Anti-nucle ar factor detected 781563908 Active 2024 yumi cantu, [place] [facility] - [place] & [place] 5 13:19:39 Hypersensi tivity angiitis 65432316 Active 2024 Adam Cheung NP [address], [address], [place], [address] , [place] - [facility] - [place] & [place] 5 14:43:01 Problem Notes None recorded. Procedures Surgical History Date Name Laterality Status Provider Name and Address Organization Details Recorded Time 07/15/19 23 EGD completed Cheleste Robe [place] - [facility] - [place] & [place] 03/19/2023 13:37:36 11/30/19 21 Most Recent Mammogram completed Sanaeste Robe [place] [facility] - [place] & [place] 03/19/2023 13:49:58 11/21/19 21 completed Yumi Kraig [place] [facility] [place] & [place] 11/07/2022 01:24:42 11/20/19 21 Date of Last Pap Smear completed Yumi Alaniso [place] [facility] [place] & [place] 11/07/2022 01:24:42 05/21/19 20 Date of Last Colonoscopy completed Sanaeste Robe [place] - [facility] - [place] & [place] 03/19/2023 13:49:47 05/21/19 20 EGD completed Cheleste Robe [place] [facility] [place] & [place] 03/19/2023 13:44:40 05/21/19 20 Colonoscopy completed Sanaeste Robe [place] [facility] [place] & [place] 03/19/2023 13:44:33 05/19/19 20 Other completed Yumi Kraig [place] [facility] [place] & [place] 11/07/2022 01:24:54 05/19/19 10 Thyroid Surgery completed Yumi ALBERTO [facility] & [place] 11/07/2022 01:24:54 05/19/19 10 Office Administration Surgery completed Yumi ALBERTO [facility] & [place] 11/07/2022 01:24:54 05/19/19 08 Breast Surgery completed Yumi Alaniso MARYANNE ALBERTO [facility] & [place] 11/07/2022 01:24:54 Orthopedic Surgery completed Luis ALBERTO [facility] & [place] 03/19/2023 13:38:15 excision of lipoma completed Luis ALBERTO [facility] & [place] 03/19/2023 13:40:34 endoscopic excision of right lobe of thyroid gland completed Criselda ALBERTO [facility] & [place] 03/05/2022 09:05:04 section completed Criselda Ramone MARYANNE Kyle DOLLY [facility] & [place] 03/05/2022 09:05:10 hysterectomy completed Criselda ALBERTO [facility] & [place] 03/05/2022 09:05:22 Imaging Results None recorded. Procedure Notes None recorded. Medical Equipment None Reported. Allergies Allergen ID Allergen Name Allergen Category Reaction Reaction Severity Criticality Documentation Date Start Date Code Code System Note Provider Name and Address Organization Details Recorded Time 471556 Bactrim medicatio n Not available Not available Not available 03/19/2023 44807 9 RxNorm Luis cantu MARYANNE ALBERTO [facility] & [place] 13:38:37 71175 Substance with sulfonami de structure and antibacte rial mechanism of action (substanc e) medicatio n rash mild Not available 03/05/2022 39686 8003 SNOMED Luis cantu, MARYANNE ALBERTO [facility] & [place] 13:36:00 Medications Name Sig Start Date Stop Date Status Note LastModified by Organization Details LastModified Time quetiapine 25 mg tablet TAKE 1 TABLET BY MOUTH EVERYDAY AT BEDTIME 2024 active Not Available Not Available Not Avai lable cyclobenzap rine 10 mg tablet TAKE 1/2 TO 1 TABLET BY MOUTH THREE TIMES DAILY NEEDED active Not Available Not Available No t Available tretinoin 0.1 % topical cream 09/17 completed Not Available Not Available Not Available doxycycline hyclate 100 mg capsule TAKE 1 CAPSULE BY MOUTH TWICE A DAY DIRECTED FOR 10 DAYS 09/17 completed Not Available Not Available Not Available trazodone 50 mg tablet TAKE 2 TABLETS BY MOUTH EVERY DAY 10/14 completed Not Available Not Available Not Available azithromyci n 250 mg tablet TAKE 2 TABLETS BY MOUTH TODAY, THEN TAKE 1 TABLET DAILY FOR 4 DAYS 03/05 completed Not Available Not Available Not Available minocycline 100 mg capsule active Not Available Not Available Not Available prednisone 20 mg tablet 06/02 completed Not Available Not Available Not Available doxycycline hyclate 50 mg capsule TAKE 1 CAPSULE BY MOUTH EVERY 12 HOURS 01/14 completed Not Available Not Available Not Available phentermine 37.5 mg tablet TAKE 1 TABLET BY MOUTH EVERY DAY IN THE MORNING 09/17 completed Not Available Not Available Not Available tretinoin 0.05 % topical cream APPLY TOPICALLY TO THE AFFECTED AREA ON THE FACE EVERY DAY 09/17 completed Not Available Not Available Not Available doxepin 10 mg capsule TAKE 1 CAPSULE BY MOUTH EVERYDAY AT BEDTIME active Not Available Not Available No t Available tramadol 50 mg tablet TAKE 1 TABLET BY MOUTH EVERY 8 HOURS active Not Available Not Available No t Available triamcinolo ne acetonide 0.1 % topical cream APPLY TO AFFECTED AREA(S) TWICE DAILY NEEDED active Not Available Not Available No t Available amoxicillin 875 mg tablet Take 1 tablet every 12 hours by oral route for 10 days. 03/16 completed Not Available Not Available Not Available ropinirole 0.25 mg tablet TAKE 1 TABLET BY MOUTH ONCE DAILY 1 TO 3 HOURS BEFORE BEDTIME active Not Available Not Available No t Available pantoprazol e 40 mg tablet,chema yed release Take 1 tablet every day by oral route before meals for 90 days. 2024 active Not Available Not Available Not Avai lable lisinopril 10 mg tablet TAKE 1 TABLET BY MOUTH EVERY DAY active Not Available Not Available No t Available promethazin e 25 mg tablet TAKE 1 TABLET BY MOUTH EVERY 6 HOURS FOR 5 DAYS. active Not Available Not Available No t Available gabapentin 300 mg capsule TAKE 1 CAPSULE BY MOUTH ONCE A DAY AT BEDTIME FOR 7 DAYS, THEN INCREASE TO 2 CAPSULES AT BEDTIME 09/17 completed Not Available Not Available Not Available hydroxyzine HCl 25 mg tablet TAKE 1 TABLET BY MOUTH THREE TIMES DAILY NEEDED FOR ITCHING 2024 active Not Available Not Available Not Avai lable hydrochloro thiazide 25 mg tablet TAKE 1 TABLET BY MOUTH EVERY DAY 01/14 completed Not Available Not Available Not Available diclofenac sodium 50 mg tablet,chema yed release 09/17 completed Not Available Not Available Not Available epinephrine 0.3 mg/0.3 mL injection, auto-inject or Administe r injection as needed for anaphylax is as directed on packaging active Not Available Not Available No t Available prednisone 5 mg tablets in a dose pack TAKE 6 TABLETS ON DAY 1 DIRECTED ON PACKAGE AND DECREASE BY 1 TAB EACH DAY FOR A TOTAL OF 6 DAYS active Not Available Not Available No t Available methylpredn isolone 4 mg tablets in a dose pack TAKE 6 TABLETS ON DAY 1 DIRECTED ON PACKAGE AND DECREASE BY 1 TAB EACH DAY FOR A TOTAL OF 6 DAYS 09/17 completed Not Available Not Available Not Available bromphenira mine-pseudo ephedrine-D M 2 mg-30 mg-10 mg/5 mL oral syrup TAKE 10 ML BY MOUTH EVERY 4 HOURS NEEDED FOR 5 DAYS active Not Available Not Available No t Available fluoxetine 20 mg capsule 09/17 completed Not Available Not Available Not Available metformin ER 500 mg tablet,exte nded release 24 hr TAKE 1 TABLET BY MOUTH EVERY DAY AT DINNER 2023 active Not Available Not Available Not Avai lable duloxetine 30 mg capsule,del ayed release TAKE 1 CAPSULE BY MOUTH EVERY DAY active Not Available Not Available No t Available duloxetine 60 mg capsule,del ayed release TAKE 1 CAPSULE BY MOUTH EVERY DAY FOR 90 DAYS active Not Available Not Available No t Available olopatadine 0.2 % eye drops Instill 1 {drop} by ophthalmi c route. 09/17 completed Not Available Not Available Not Available hydrochloro thiazide 12.5 mg tablet TAKE 1 TABLET BY MOUTH EVERY DAY IN THE MORNING 2023 active Not Available Not Available Not Avai lable melatonin 5 mg disintegrat ing tablet 2019 active Not Available Not Available Not Avai lable Linzess 145 mcg capsule 1 {capsule} by oral route. active Not Available Not Available No t Available Robitussin Cough-Chest Congestion DM 10 mg-200 mg capsule 1 capsule PO q 4-6 hrs as needed for cough 09/17 completed Not Available Not Available Not Available Ubrelvy 100 mg tablet active Not Available Not Available No t Available Ozempic 0.25 mg or 0.5 mg (2 mg/3 mL) subcutaneou s pen injector Inject by subcutane ous route for 28 days. 04/01 completed Not Available Not Available Not Available Vitals Date Recorded Body height Body mass index (BMI) Body weight Body temperature Oxygen saturation Oxygen saturation in Arterial blood by Pulse oximetry Heart rate Systolic And Diastolic Provider Name and Address Organization Details Last Updated DateTime 5 168.91 cm 39.9 kg/m2 477844. 68 g 97 [degF] 100 % 100 % 122 /min 160/103.99 mm[Hg] Dolores Wright [facility] & [place] 5 14:49:03 Date Recorded Body height Body mass index (BMI) Body weight Body temperature Oxygen saturation Oxygen saturation in Arterial blood by Pulse oximetry Heart rate Systolic And Diastolic Provider Name and Address Organization Details Last Updated DateTime 4 168.91 cm 35.6 kg/m2 776801. 69 g 97.7 [degF] 97 % 97 % 103 /min 162/102 mm[Hg] Estefany Feliciano [facility] & [place] 4 15:21:19 Date Recorded Body height Body mass index (BMI) Body weight Body temperature Oxygen saturation Oxygen saturation in Arterial blood by Pulse oximetry Heart rate Systolic And Diastolic Provider Name and Address Organization Details Last Updated DateTime 4 168.91 cm 35.6 kg/m2 211500. 05 g 99.5 [degF] 95 % 95 % 110 /min 142/92 mm[Hg] Penny Romero [facility] & [place] 4 08:34:47 Date Recorded Body height Body mass index (BMI) Body weight Body temperature Oxygen saturation Oxygen saturation in Arterial blood by Pulse oximetry Heart rate Systolic And Diastolic Provider Name and Address Organization Details Last Updated DateTime 4 168.91 cm 35.8 kg/m2 443251. 72 g 97.3 [degF] 99 % 99 % 105 /min 118/84 mm[Hg] Estefany Feliciano [facility] & [place] 4 16:02:30 Date Recorded Body height Body mass index (BMI) Body weight Body temperature Oxygen saturation Oxygen saturation in Arterial blood by Pulse oximetry Heart rate Systolic And Diastolic Provider Name and Address Organization Details Last Updated DateTime 4 168.91 cm 38.8 kg/m2 979124. 54 g 96.8 [degF] 98 % 98 % 106 /min 140/98 mm[Hg] yumi appiah [facility] & [place] 4 08:55:28 Social History Question Answer Notes LastModified by Organizat [employer] Details LastModified Time Tobacco Smoking Status Never Smoker [facility] [place] 11/07/2022 01:24:50 Do You Have An Advance Directive? No [email or web address] Information not available 11/07/2022 Are You Blind Or Do You Have Difficulty Seeing? No [email or web address] Information not available 11/07/2022 Are You Passively Exposed To Smoke? Yes [email or web address] Information not available 11/07/2022 Sex: Female Functional Status Question Answer Note LastModified by Organizat ion Details LastModified Time Do you use any illicit or recreational drugs? No [email or web address] Information not available 11/07/2022 What is your level of alcohol consumption? None Information not available 11/07/2022 What is your exercise level? None [email or web address] Information not available 11/07/2022 Mental Status Question Answer Note LastModified by Organization D etails LastModified Time Do you feel stressed (tense, restless, nervous, or anxious, or unable to sleep at night)? [id number] [email or web address] Information not available 11/07/2022 Family History Relationship Description Onset Age of this Age Resolved Age Notes LastModified by Organization Details LastModified Time Mother Headache pt. added direct ly (02/25) [email or web address] Not available 02/25/2022 09:54:58 Mother Myocardial infarction pt. added direct ly (02/25) [email or web address] Not available 02/25/2022 09:55:05 Mother Disorder of thyroid gland [email or web address] Not available 2022 13:40:58 Mother Family history of malignant neoplasm Breast CA, Lung CA [email or web address] Not available 03/19/2023 13:41:27 Mother Mother [email or web address] Not available 2022 13:41:34 Father Substance abuse pt. added direct ly (02/25) [email or web address] Not available 02/25/2022 09:55:58 Maternal Grandfather Substance abuse pt. added direct ly (02/25) [email or web address] Not available 02/25/2022 09:55:58 Unspecified Relation Hypertensive disorder [email or web address] Not available 2022 13:41:09 Unspecified Relation Diabetes mellitus [email or web address] Not available 2022 13:41:47 Medical History Condition Response Allergies/Hayfever Y Other Y Ear or Hearing Problems Y GI Problems Y Depression Y Acne Y History of STI Y Obstructive Sleep Apnea Y Obesity Y Vision or Eye Problems Y Arthritis Y Back Problems Y Reflux/GERD Y Headaches Y Hypertension Y Gynecological History Statement/Question Response Abnormal Pap Y 11/20/2020 Date of Last Colonoscopy 05/21/2019 Sexually Active? Y Menses Monthly N Date of Last Pap Smear 11/19/2020 Current Control Method None Most Recent Mammogram 11/29/2020 Obstetrics History GPAL:G 0 P 0 0 0 0 Immunizations Vaccine Type Date Status Note Provider Nam e and Address Organization Details Recorded Time influenza, unspecified formulation 02/12/2017 completed Luis cantu, [place] - [facility] [place] & [place] 03/19/2023 13:36:32 Tdap 05/05/2019 completed Luis Nagel null, [place] [facility] [place] 03/19/2023 13:36:32 zoster recombinant 11/28/2021 completed Luis Nagel null, [place] [facility] [place] 03/19/2023 13:36:32 COVID-19, mRNA, LNP-S, PF, 100 mcg/0.5mL dose or 50 mcg/0.25mL dose 06/07/2020 completed Luis cantu, [place] [facility] [place] 03/19/2023 13:36:32 COVID-19, mRNA, LNP-S, PF, 100 mcg/0.5mL dose or 50 mcg/0.25mL dose 11/28/2021 completed Luis Nagel null, [place] - [facility] - [place] & [place] 03/19/2023 13:36:32 COVID-19, mRNA, LNP-S, PF, 100 mcg/0.5mL dose or 50 mcg/0.25mL dose 01/18/2021 completed Luis Nagel null, [place] [facility] [place] & [place] 03/19/2023 13:36:32 COVID-19, mRNA, LNP-S, PF, 100 mcg/0.5mL dose or 50 mcg/0.25mL dose 05/10/2020 completed Luis cantu, [place] - [facility] - [place] & [place] 03/19/2023 13:36:32 Past Encounters Encounter ID Performer Location Encounter Start Date Encounter Closed Date Diagnosis/Indication Diagnosis SNOMED-CT Code Diagnosis ICD10 Code Diagnosis Note [id number] Adam Cheung NP [facility] [address] [place] [address] 03/05/2022 08:48:08 03/20/2022 08:23:02 Essential hypertension 82912397 I10 BP stablecont inue current med Screening for cardiovascular system disease 831862911 Z13.6 check lipids Fatigue 68817196 R53.83 check CBC,CMP, TSH and B12 Diabetes m ellitus screening 400555081 Z13.1 screening A1C Exposure t o Hepatitis C virus 060747399 Z20.5 pts fiance has Hep C-getting ready to start treatmentp t requesting to be checked Skin lesion 21294577 L98 .9 pt enc. to make appt with Dermatolog y to have this evaluated further Obesity 731488657 E66.9 Pt will call insurance and inquire about coverage on Saxenda or Wegovy [id number] Adam Cheung NP [facility]- Dept [address] [facility] [place] [id number] 01/14/2023 09:28:18 01/14/2023 10:22:20 Screening mammography of bilateral breasts 3041845408 66656 Z12.31 order mammogram Adult [facility] th examination 056509936 Z00.00 annual exam check labs Preventati ve care:Mammo gram-duePa p smear-s/p partial hyst; sees GYNColonos -2010 due 4DEXA scan-due age 60-65Visio n-2023Dent al-dueCOVI D-w2Rmv-iz e in FallPneumo lashae-age 60-65Shing les-age 60-65 Essential hypertension 29505876 I10 BP stablecont inue current med Migraine 55348535 G43.90 9 pt on Ubrelvyuse s phenergan for nausea as needed Depressive disorder 3548 9007 F32.A will start patient on Cymbalta 30 mgstopped her prozac due to dizzinesss till feeling down Chronic insomnia 1409112 04 F51.04 will try patient on Doxepinpt needs more trazodone to help her sleep but it causes her to be too drowsy and have a H/A Body mass index 30+ - obesity 184039934 Z68.35 BMI at 35.9 Prediabetes 215006904 R7 3.03 recheck N5Wdavpp Ozempic to help with weight loss Obesity 861033458 E66.9 No coverage for Wegovy Degenerati on of lumbar intervertebral disc 49775500 M51.36 pt requesting referral to Dr. Hensley of DDD, disc protrusion slast MRI 11/2021 [id number] Adam Cheung NP [facility]- Dept [address] [place] [address] 04/01/2023 10:17:31 04/01/2023 10:45:26 Obesity 599216648 E66.09 pt down 8 lbsdoing well, mild dry mouthwas recently put on steroids for her neck/arm-- hoping this wont interfere Body mass index 30+ - obesity 685208651 Z68.35 BMI 34.6 Malodorous urine 1450632 01 R82.998 will check urine for patientno current UTI symptomsin crease water intake and cut back on soda [id number] Adam Cheung NP [facility]- Dept [address] [place] [id number] 09/18/2023 15:07:21 09/18/2023 16:02:03 Essential hypertension 00150307 I10 BP stablecont inue current med Depressive disorder 3548 9007 F32.A increase to 60 mg daily to help with anxiety/de pression Postmenopausal state 764 81985 Z78.0 check hormone paneldiscu ssed possibly starting hormone patch Fatigue 44283739 R53.83 check CBC,CMP, TSH and B12 Migraine 65109093 G43.90 9 pt on Ubrelvyuse s phenergan for nausea as needed Prediabetes 232817008 R7 3.03 recheck R0Yjbfbr Ozempic to help with weight loss Vitamin D deficiency 347 27146 E55.9 check vit d Chronic insomnia 6156195 04 F51.04 failed trazodone and doxepinwil l try her on Seroquel 25 mg [id number] Nate Ruiz DO [facility]- Dept [address] [facility] [employer] [place] [address] 06/02/2023 13:47:50 06/02/2023 14:33:56 Bronchitis 51908966 J40 Fatigue 70662508 R53.83 [id number] Adam Cheung NP [facility]- Dept [address] [facility] [employer] [place] [id number] 10/16/2023 15:33:07 10/16/2023 16:33:21 Essential hypertension 88235222 I10 BP stablecont inue current med Depressive disorder 7026 6347 F32.A continue Cymbalta 60 mg Chronic insomnia 7599901 04 F51.04 pt is sleeping around 6 hours with the Seroquelco ntinue dose--no drowsiness in AM Snoring 88966818 R06.83 will send for in lab study--pt requestedw e will see if insurance will cover thismay have to do a home study Daytime somnolence 81074 59644 00 R40.0 [id number] Valerie Moses APRN [facility]- Floor 1, [address] [place] [id number] 10/15/2023 08:19:43 10/15/2023 08:47:52 Cough 07768712 R05.1 Recommend increase fluid intake (especiall y water). Cool mist humidifier at bedside at night to help loosen mucus. Recommend nasal washes daily, allergy medication and nasal spray for symptom management . May use Tylenol and Ibuprofen as needed for fever/pain ; cough/cold remedies PRN. Follow-up with PCP if no improvemen t in 7-10 days, sooner with worsening symptoms. Acute left otitis media 345704657 H66.92 Complete medication as directed. Headache 46658984 R51.9 Generalize d acute body pains 310737275 R52 [id number] Adam Cheung NP [facility]- Dept [address] [employer] [id number] 03/16/2024 08:42:32 03/16/2024 09:49:44 Maculopapular eruption 378382328 R21 unsure of exact cause of rashwill start Prednisone taper pack check ESR, CRP and CBC Renewal of prescription 172129033 Z76.0 refill epi pen [id number] Adam Cheung NP [facility]- Dept [address] [employer] [id number] 07/09/2024 14:38:24 07/09/2024 15:39:15 Vasculitis of the skin 83429139 L95.9 check BORA and Rheumatoid factorpt will get labs done at [facility] outpatient pt had stopped her medication s thinking it was due to that but nothing has changed Fatigue 34014110 R53.83 check CBC,CMP, TSH and B12 Essential hypertension 73203430 I10 BP stablecont inue current med Hepatitis C screening 41 4629354 Z11.59 pt requesting to check for Hep C Prediabetes 034033518 R7 3.03 check A1C Depressive disorder 3548 9007 F32.A continue Cymbalta 60 mgrestart medication Renewal of prescription 064159562 Z76.0 Obstructiv e sleep apnea syndrome 31832169 G47.33 will resend order for Cpappt had sleep study done in 11/2023 Health Concerns Section Related Observation LastModified by Organization Detai ls LastModified Time None Recorded Concern Status LastModified by Organization Details LastModified Time None Recorded Advance Directives Directive N: Payers Insurance Date Sequence Insurance Name Policy Number Policy Faulkner Covered Member ID Faulkner Member ID Guarantor Name 07/16/2024 1 [place] [id number] Tiny Fajardo [id number] Tiny Fajardo 12/06/2023 1 [place] [id number] Tiny Fajardo [id number] Tiny Fajardo Notes Date Note Type Note Provider Name and Address Organization Details Recorded Time 09/18/2023 text/html Patient presents today in the clinic to follow-up on some of the issues that she has been having. Patient states that she had bronchitis in May and then got COVID in June. She states ever since then she has really not felt well. She has been having frequent headaches and ringing in her ears. Her blood pressure has been running a little bit higher. She states her bottom number is typically running anywhere from 90-100. Patient states she has also been dealing with some arm numbness and tingling. She states she is seeing Dr. Price because she has a C5-C6 disc bulge. He did do a neck injection it seems to be helping. She stopped taking her Adipex because she was worried about how it would affect her blood pressure. Patient states that her mother had a heart attack in her 50s. She saw Cardiology about 5 years ago and did a stress test and echo which came back normal. Patient states that she also feels like her hormones are out of whack. She is having regular hot flashes, joint pain and fatigue. She is also having trouble losing weight. She states that she started taking 2 of her duloxetine and it does seem to help but it seems to cause worsening insomnia. Patient is not currently on any hormone replacement. She had hysterectomy but they did leave 1 ovary. Patient has tried doxepin and trazodone for sleep but these have not been very helpful for her. Adam Cheung NP [address] [place] [address], [address], [place], [address], [place] - [facility] [place] & [place] 09/18/2023 16:38:54 10/15/2023 text/html ROS as noted in the HPI 52 YO female presents with c/o a fever (TMax 100.2), chills, runny nose, sore throat, cough, congestion, body aches and headache. She has taken Tylenol and Motrin, her last dose was this morning. She denies known ill contact exposures. No SOB, chest pain, B/B changes. No recent antibiotic use. Valerie Moses APRN [address], [address], [place], [address], [facility] 10/15/2023 09:25:57 10/16/2023 text/html Patient presents today in the clinic to follow-up on her medication changes that we did a few weeks ago. Patient states she is sleeping better with the quetiapine. She states she just does not sleep if she does not take it. She has not had any side effects with the medicine. She states her depression does seem to be improving with the increased dose of Cymbalta. We also started patient on HCTZ 12.5 mg for her blood pressure and is now back in normal range. She states overall she is doing pretty good. She did have to go to urgent care yesterday and was diagnosed with a sinus and ear infection. She is taking amoxicillin. Patient is prediabetic. We tried to get Ozempic covered but her insurance declined. We started metformin. Patient reports a longstanding history of snoring. She states she is worked herself up gasping. She did do a sleep study in the past which showed mild sleep apnea. She states that she has not had a follow-up with this since. Patient would like to have an in-lab study. Adam Cheung NP [address], [address], [place], [address], [facility] 10/16/2023 16:47:55 03/16/2024 text/html Patient presents today in the clinic with complaints of a rash on both of her legs and feet that started last Friday. Patient states that she wore a new pair of leggings to work and stay had not been washed. Patient states she has never had any type of reaction to any dies from clothing. Patient states that she came home and took a shower and shaved her legs and then the rash started getting worse. She states it was even on the bottom of her feet. She states that it was occasionally itchy but really overall not very pruritic. Patient states that she does not have the rash anywhere else on her body. She did have an old Medrol Dosepak so she started taking that along with Benadryl but it has not seemed to make the rash go away but it does seem to be a little bit better. Onset gradual Adam Cheung NP [address], [address], [address], [facility] - [facility] & [place] 03/16/2024 09:30:45 07/09/2024 text/html Patient presents today in the clinic to discuss her blood pressure as well as follow up on her vasculitis. She states that she saw Dr. Mcdaniel but he just did a biopsy and gave her some cream. The rash has got a little better but it is still present. She just wants to know if there is anything else she needs to be concerned about. She really wants it to go away. She states that her blood pressure has been running high despite taking her HCTZ. patient would like to get some lab work done to check everything out. She would like to get checked for hep C. She states that she just wants to make sure due to past relationships. Patient does need refills on several medications. Patient does have sleep apnea but she states that she never heard from the company about getting this set up so she would be open to having this done. She does deal with a lot of daytime fatigue. Adam Cheung NP [address] [facility] [address], [address], [place], [address], [place] - [facility] & [place] 07/16/2024 19:08:15 OBGyn Episode No OBEpisode recorded.
[2024-12-09 15:41] VITALS: BP 139/84; PULSE 99; RESP 18; O2SAT 95; BMI 39.9
--- NOTE | 2024-12-09 15:46 | EXP.PAIN.SOA ---
[facility] Disclaimer: The information contained in this section may have been updated after the patient was seen, as this information can be updated by other users. Medical History (Updated 12/09/24 @ 15:54 by Parvin Howard APRN) GERD (gastroesophageal reflux disease) HTN (hypertension) Depression Seasonal allergies IBS (irritable bowel syndrome) No significant past medical history Surgical History History of hysterectomy Hx of breast reduction, elective History of thyroidectomy History of Family History (Updated 10/04/24 @ 11:58 by Leny De La Rosa RN) Other Cancer Diabetes Hyperlipidemia Hypertension Social History (Updated 10/04/24 @ 11:59 by Leny De La Rosa RN) Smoking Status: Never smoker alcohol intake: never current occupational status: employed Travel in the last 8 weeks?: None caffeine: Yes Have you lived/traveled outside [place] in past 30 days?: No Contact w/someone who lives/traveled outside [place] past 30 days?: No Exposure to someone with infectious disease in past 14 days?: No Do you have a fever (greater than 100.4 F or 38 C)?: No Have you tested positive for COVID-19?: No Exposed to someone with COVID-19 in past 14 days?: No Do you have a sore throat?: No Do you have a cough?: No Do you have any weakness?: No Do you have any diarrhea?: No Are you experiencing any unusual bleeding?: No Do you have any muscle aches/pain?: No Do you have any abdominal pain?: No Are you experiencing loss of taste or smell?: No PM Subjective & Objective Subjective Subjective:: Patient is a pleasant 54-year-old female who presents today for follow-up of her lumbar MRI as well as worsening pain. She does rated her pain a 7 out of 10. She did also have a lumbar epidural of L4-L5 back on October 28. Patient does state that she did get about 50% relief but only lasted 1 day. Patient denies any new falls or injuries. She is still having the same pain like what she had prior with numbness all down her entire left extremity. Patient does state the pain interferes with her ability perform activities of daily living such as cooking and cleaning. From our last visit she did also go and see Dr. Price who is a orthospine physician who did state that he wanted her to have a second epidural to see whether or not if it provided significant improvement and that they were stating that if she did not get relief that they would be recommending surgical intervention. She does state that they have talked about doing a three-level procedure and that it would be quite extensive. Patient does state that she would like to hold off on this as long as possible. Patient is scheduled for the referral appointment with Dr. Watson in January. Patient is wanting to keep this appointment to get a second opinion. Patient is currently managed from our office with Flexeril 10 mg 3 times daily as needed, diclofenac 75 mg twice daily and was just recently given a prescription of pregabalin 75 mg twice daily. Patient states she has not yet picked up this medication to try. Her Johny has been reviewed and is appropriate. Review of Systems: General: No recent weight changes, no fever, no sleep disturbances Respiratory: No cough, no shortness of air, no recurring pulmonary infections Cardiovascular/peripheral vascular: No chest pain, no palpitations, no edema, no shortness of breath Gastrointestinal: No new onset incontinence, normal bowel movements reported Genitourinary: No new onset incontinence Musculoskeletal: Low back pain, left leg numbness tingling Psychiatric: [Normal mood/affect] Neurological: [Denies weakness in extremities], [denies balance issues] Pain at rest (0-10 scale): 7 Objective Objective:: Physical Exam: General: Alert and oriented x3, no acute distress, pleasant and cooperative Lungs: Respirations even and unlabored, symmetrical chest expansion Eyes: PERRL Musculoskeletal: Flexion and extension of lumbar [spine] somewhat guarded secondary to pain, [antalgic gait noted] positive left leg raise with decreased sensation to light touch and decreased reflexes Neurological: Speech clear, no gross sensory deficit Has patient had previous pain injection?: Yes Percent improvement in pain since last injection: 50% Conservative treatment options previously tried: Home exercise plan Length of treatment: Longer than 12 weeks Meds Home Medications and Allergies Home Medications ?Medication ?Instructions ?Recorded ?Confirmed ?Type cyclobenzaprine 10 mg tablet 5 - 10 mg PO TID PRN PAIN 11/01/21 12/09/24 History diclofenac potassium 50 mg tablet 50 mg PO DAILY . 11/01/21 12/09/24 History doxycycline hyclate 50 mg capsule 50 mg PO Q12H PRN ACNE 11/01/21 12/09/24 History fluoxetine 20 mg capsule 20 mg PO DAILY Depression 11/01/21 12/09/24 History hydrochlorothiazide 12.5 mg capsule 25 mg PO DAILY HTN 11/01/21 12/09/24 History levocetirizine 5 mg tablet 5 mg PO DAILY Allergy symptoms 11/01/21 12/09/24 History linaclotide 145 mcg capsule 145 mcg PO DAILY PRN Constipation 11/01/21 12/09/24 History pantoprazole 40 mg tablet,delayed 40 mg PO DAILY GERD 11/01/21 12/09/24 History release trazodone 50 mg tablet 100 mg PO DAILY SLEEP 11/01/21 12/09/24 History ubrogepant 100 mg tablet 100 mg PO DAILY MIGRAINE 11/01/21 12/09/24 History ropinirole 0.25 mg tablet 0.25 mg PO HS #30 tabs 06/09/23 12/09/24 Rx ropinirole 0.25 mg tablet See Rx Instructions .Route 01/26/24 12/09/24 Rx .COMPLEX #90 tabs methocarbamol 500 mg tablet See Rx Instructions .Route 11/01/24 12/09/24 Rx .COMPLEX #90 tabs cyclobenzaprine 10 mg tablet 10 mg PO TID #90 tabs 11/04/24 12/09/24 Rx prednisone 20 mg tablet 20 mg PO BID #10 tabs 11/04/24 12/09/24 Rx diclofenac sodium 75 mg See Rx Instructions .Route 12/06/24 12/09/24 Rx tablet,delayed release .COMPLEX #60 tabs pregabalin 75 mg capsule (Lyrica) 75 mg PO BID #28 caps 12/08/24 12/09/24 Rx New Prescriptions to Start Prescriptions: Assessment and Plan *Assessment and plan (1) Lumbar radiculopathy: Status: Acute Category: Medical Code(s): M54.16 - Radiculopathy, lumbar region (2) Degenerative disc disease, lumbar: Status: Acute Category: Medical Code(s): M51.369 - Other intervertebral disc degeneration, lumbar region without mention of lumbar back pain or lower extremity pain (3) Lumbar nerve root impingement: Status: Acute Category: Medical Code(s): M54.16 - Radiculopathy, lumbar region Plan I did review over with the patient regarding her lumbar MRI that did show a left S1 nerve root impingement as well as a L2 and L3 nerve encroachment all along the left side which may be playing a role in her worsening pain. Patient does state the pain travels down the lateral side of her left leg and towards the front on to her upper foot as well as down the back of her calf which is appropriate for the L4-L5 L5-S1 dermatome. I did discuss with the patient due to her very limited range of motion and positive leg raise with decreased sensation to light touch and decreased reflexes that I do believe it would be more beneficial to try a left transforaminal epidural steroid injection. Risk and benefits were discussed with patient and she would like to to proceed forward with this plan of care. Patient has tried and failed conservative therapy including oral medication, heat and ice, topicals, previous physical therapy and continued at home stretching exercise for longer than 12 weeks that was physician guided. Patient has been seen by a orthospine physician who is recommending surgical intervention if she does not get significant relief with her next epidural. He is requesting this epidural to be done as soon as possible. Patient will be submitted for a left transforaminal epidural steroid injection L4-L5 and L5-S1 under fluoroscopy. Patient has been instructed to contact the clinic with any concerns before the next appointment. Dr. Bernabe has reviewed this note and agrees with this plan of care. This note was dictated using voice recognition software and make contain errors or omissions. All injections are used with Lidocaine, Bupivacaine and dexamethasone. Occasionally urine drug screen is needed to verify patient's compliance with our office pain contract. This is ordered based off specific treatments related to chronic pain with the potential to abuse certain medications. [facility] Lumbar MRI without contrast November 11, 2024 Findings: There are 5 lumbar-type vertebral bodies. Spinal cord terminates at L1 and has normal signal. Nerve roots of the cauda equina are normal in morphology. Normal lumbar lordosis. Vertebral body and facet alignment is anatomic. Vertebral body heights are maintained. No concerning marrow signal. Multilevel disc desiccation. There are Modic type II endplate changes across L5-S1. T12-L1: Maintain disc height without herniation or bulge. No canal or foraminal stenosis. Mild to moderate facet arthrosis. L1-L2: Mild disc height loss with asymmetric right disc bulge. Superimposed right subarticular cranially migrated disc extrusion of the L1 infra pedicular level with contact of the descending right L2 nerve root. No significant canal or foraminal stenosis. Mild facet arthrosis. L2-L3: Maintained disc height with asymmetric left disc bulge resulting in mild left foraminal stenosis with encroachment upon the left L2 nerve at the extraforaminal zone. No significant canal or right foraminal stenosis. Moderate facet arthrosis. L3-L4: Maintained disc height with asymmetric left disc bulge resulting in mild left foraminal stenosis with encroachment upon the left L3 nerve at the extraforaminal zone. Moderate facet arthrosis and facet hypertrophy. There is prominent epidural fat. These findings contribute to moderate thecal sac stenosis. No significant right foraminal stenosis L4-L5: Maintain disc height with asymmetric left disc bulge resulting in moderate bilateral foraminal stenosis. No significant canal stenosis. Moderate facet arthrosis and facet hypertrophy. L5-S1: Moderate disc height loss and asymmetric right disc osteophyte complex contacts the exiting right L5 nerve. There is superimposed central through left subarticular disc protrusion with descending left S1 nerve root contact. Moderate facet arthrosis and facet hypertrophy. Disc and facet hypertrophic change contribute to mild to moderate right and moderate left foraminal stenosis. No significant canal stenosis There is mild chronic multifidus muscle atrophy. Visualized paravertebral and retroperitoneal soft tissue structures are within normal limits
== END 2024-12-09 23:59 | disposition home or self-care (01) ==
LOC: SC.PAIN 15:23
PROVIDERS: PCP Nurse Practitioner Family; Visit Provider Nurse Practitioner Family
DX: M51.16 Intervertebral disc disorders with radiculopathy, lumbar region (principal)
CPT/HCPCS: 99212; G0463